=== PATIENT | female | born 1945 | race Caucasian/White ===

== ENCOUNTER 2020-08-10 12:01 | Outpatient (REF) | payer OTHER, SELFPAY | END 2020-08-10 12:02 | disposition home or self-care (01) | LOC: HO.LAB 12:01 | PROVIDERS: Visit Provider Internal Medicine | DX: Z20.822 Contact with and (suspected) exposure to COVID-19 (principal) | CPT/HCPCS: 36415; C9803; U0003; U0005 ==

== ENCOUNTER → 2020-10-27 08:19 | Outpatient (REF) | payer MEDICARE, SELFPAY ==
--- NOTE | ~2020-10-27 | NM_ITS ---
Lexiscan Myocardial perfusion study Indication: Chest pain, assess for coronary disease and ischemia Technique: The patient was brought in for a Lexiscan perfusion study on 10/27/2020 and was injected 0.4 mg of Lexiscan intravenously. Within a minute of this injection 25 mCi of sestamibi was given intravenously. Images were obtained using the SPECT gamma camera interlaced with the gating device. Images were obtained in supine position. Resting perfusion study was performed on 10/31/2020. Patient was administered 25 mCi of sestamibi intravenously at rest. Images were then obtained in supine position. Total DLP 87mGy-cm. Images were processed with the software and compared side to side in short axis, horizontal long axis and vertical long axis views. Findings: Raw acquisition was reviewed. The stress perfusion study showed no significant perfusion abnormality. Both uncorrected as well as CT attenuation corrected images were reviewed. The gated study shows normal LV systolic function with calculated LVEF of 70%. LV cavity is normal in size. The gated study shows normal wall thickening and contraction of segments. Resting study shows mildly diminished tracer uptake in the inferolateral wall. There is adjacent GI/hepatic tracer uptake that might be the reason behind this. Attenuation corrected images are of poor quality. Gating at rest reveals normal wall motion with ejection fraction at 50%. The findings are consistent with no definitive perfusion defects. NM/NM kristian perf SPECT rest & str Impression: 1. Myocardial perfusion imaging study shows no definitive evidence of any ischemia or infarction. 2. Gated LVEF is 70% during stress and 50% during rest. 3. Transient ischemic dilatation not present. EKG component of the test reported separately.
--- NOTE | 2020-10-27 08:30 | CA_ITS ---
Transthoracic Echocardiogram Patient (Last, First, Middle): Adele Box M Gender: Female Date of : 1945 Age: 75 Procedure Date: 10/27/2020 Procedure Type: Transthoracic Echocardiogram Location: OP Height: 142.24 cm Weight: 58.06 kg BSA: 1.47 m2 Heart Rate: bpm BP: 140 / 85 mmHg [employer] Cutter: BRIAN Perea MD: Pool Madrid MD Speech Clinician: Ron Mcclellan MD Symptoms: R53.83 OTHER FATIGUE Study Quality: Fair ECG Rhythm: Sinus Conclusions: - 1. Normal LV systolic function with grade 1 diastolic dysfunction 2. Mildly dilated left atrium 3. Normal cardiac valvular Doppler 4. Normal RV systolic pressure 5. No pericardial effusion Findings Left Ventricle Normal left ventricular size, thickness, and systolic function. The visually estimated ejection fraction is between 60-65%. Spectral Doppler is indicative of an impaired relaxation filling pattern. E/E prime ratio is <8, consistent with normal filling pressures. Evidence suggests grade I (mild) diastolic dysfunction. Right Ventricle Normal right ventricular cavity size and systolic function. Atria The left atrium is mildly dilated. There is no evidence of interatrial shunt. The right atrium is likely dilated. Aortic Valve There is mild thickening of the aortic valve. There is no aortic valve stenosis. There is no aortic valve regurgitation. Mitral Valve There is mild anterior and posterior mitral leaflet thickening. There is mild mitral annular calcification. There is trace mitral valve regurgitation. There is no mitral valve stenosis. Pulmonic Valve The pulmonic valve was not well visualized. Tricuspid Valve Likely normal tricuspid valve structure and function. There is trace tricuspid valve regurgitation. The right ventricular systolic pressure is normal. The right ventricular systolic pressure is 29 mmHg. Normal right atrial pressure. There is no evidence of pulmonary hypertension. Great Vessels All visible segments of the aorta are normal in size. The pulmonary artery was not well visualized. Venous The inferior vena cava is normal in size and collapses greater than 50% with inspiration. Pericardium/Pleural There is no evidence of pericardial effusion. Prior Study Comparison No prior study available for comparison. Measurements 2D Linear Measurements IVSd: 0.99 0.6-0.9/0.6-1.0 cm LVIDd: 3.01 3.9-5.3/4.2-5.9 cm LVIDd Index: 2.05 2.4-3.2/2.2-3.1 cm/m2 LVIDs: 2.18 2.0-3.6 cm LVPWd: 0.95 0.7-1.1 cm Ao Root: 2.80 2.1-3.5 cm LA Diam: 3.50 2.7-3.8/3.0-4.0 cm LAIDs Index: 2.38 1.5-2.3 cm/m2 LV Mass: 98.01 67-162/88-224 g LV Mass Index: 66.67 43-95/49-115 g/m2 LVOT Diam: 1.90 3.0+(-)1.3 cm 2D Systolic Function EF 4C: 59.40 >55% EF 2C: 66.70 >55% EF BiP: 64.60 >55% Mitral Valve MV Pk E: 0.98 MV PK A: 1.40 MV Decel Time: 151.00 E/A: 0.70 E'Lateral: 8.32 E'Medial: 6.67 E/E' Med: 14.70 E/E' Lat: 11.80 PHT: 44.00 MVA PHT: 5.00 Decel [place]: 6.48 Aortic Valve AoV Pk Matthieu: 1.39 AoV Mn Matthieu: 1.01 AoV VTI: 0.36 AoV Pk Grad: 8.00 Aov Mn Grad: 5.00 MICHELLE Cont.VTI: 2.33 LVOT LVOT Pk Matthieu: 1.05 LVOT Mn Matthieu: 0.77 LVOT VTI: 0.29 LVOT Pk Grad: 4.00 LVOT Mn Grad: 3.00 LVOT Diam: 1.90 LVOT Area: 2.84 Diastolic Function MV Pk E: 0.98 MV Pk A: 1.40 E/A: 0.70 E'Medial: 6.67 E/E' Med: 14.70 E' Laterial: 8.32 E/E' Lat: 11.80 Tricuspid Valve TR Pk Matthieu: 2.55 TR Pk Grad: 26.00 RA Press: 3.00 RVSP: 29.00 Great Vessels Aorta Ao Root-2D: 2.80 2.0-3.7 cm Ao Asc: 2.80 2.1-3.4 cm Ao Arch: 2.50 Updated in Other Vendor System with Status of Final Ron Mcclellan MD electronically signed on 10/29/2020 12:02:38 PM with status of Final
--- NOTE | 2020-10-27 09:30 | CA_ITS ---
Acquisition Time: 2020-10-27 09:27:46 Total Exercise Time: 00:02:00 Test Indications: Fatigue Medications: AMLODIPINE ADVAIR PRO AIR ATORVASTATIN OMEPRAZOLE CARAFATE Protocol: LEXISCAN Max HR: 125 BPM 86% of Pred: 144 BPM Max BP: 130/080 mmHG Max Work Load: 1.0 METS Pharmacological stress test using Lexiscan while sitting and kicking her feet. Pt reports chest thightness after Lexiscan that resolves in recovery. EKG with no arrhythmia, non-diagnostic for ischemia, Nuclear images to follow. Normotensive response to test. Test reviewed with Dr. Parra Referred By: Pool Montemayor Overread By: Katherine Gutierrez NP
== END ==
LOC: HO.CARD 08:19
PROVIDERS: PCP Internal Medicine; Visit Provider Internal Medicine
DX: R07.9 Chest pain, unspecified (principal); R53.83 Other fatigue
CPT/HCPCS: 78452; 93016; 93017; 93018; 93306; A9500; J0280; J2785

== ENCOUNTER 2021-03-09 12:52 | Outpatient (REF) | payer MEDICARE, SELFPAY | END 2021-03-09 12:53 | disposition home or self-care (01) | LOC: HO.LAB 12:52 | PROVIDERS: PCP Internal Medicine; Visit Provider Internal Medicine | DX: Z20.822 Contact with and (suspected) exposure to COVID-19 (principal) | CPT/HCPCS: C9803; U0003; U0005 ==

== ENCOUNTER 2021-06-25 10:23 | Outpatient (REF) | payer MEDICARE, SELFPAY ==
[2021-06-25 12:03] LABS: COVID-19 Test Negative (Negative); IDNOW Serial# 16C4AD1C
== END 2021-06-25 10:24 | disposition home or self-care (01) ==
LOC: HO.LAB 10:23
PROVIDERS: Visit Provider Internal Medicine
DX: Z20.822 Contact with and (suspected) exposure to COVID-19 (principal)
CPT/HCPCS: 36415; 87635; C9803

== ENCOUNTER 2021-07-20 08:27 | Outpatient (REF) | payer MEDICARE, SELFPAY ==
--- NOTE | ~2021-07-20 | MM_ITS ---
EXAMINATION: BONE DENSITOMETRY CLINICAL INDICATION: Menopause. COMPARISON: This is the patient's baseline examination. TECHNIQUE: Using a [employer] Scheduling DXA System (software version: 13.1) manufactured by [employer], dual-energy x-ray absorptiometry was performed of the lumbar spine and left hip. The images are of good technical quality. Summary results are attached. FINDINGS: AP SPINE L2-L4 (excluding L1): The data of L1-L4 has been changed to exclude the L1 vertebral body, because degenerative sclerosis at this level may cause overestimation of lumbar spine density. BMD 0.778 g/cm2, Z-score -1.5, T-score -3.5, osteoporosis. LEFT FEMUR, NECK: BMD 0.724 g/cm2, Z-score -0.1, T-score -2.3, osteopenia. LEFT FEMUR, TOTAL: BMD 0.801 g/cm2, Z-score 0.4, T-score -1.6, osteopenia. IDENTIFIED RISK FACTORS: Menopause, anticonvulsant, height loss, low calcium intake. HISTORY OF FRACTURE: None listed. MEDICATIONS: Vitamin D. MM/XR DEXA axial skeleton IMPRESSION: 1. DIAGNOSIS: Osteoporosis based on the lowest T-score value of -3.5 in the lumbar spine applying World Health Organization criteria. 2. 10-YEAR FRACTURE RISK PREDICTION, FRAX: Major osteoporotic fracture (clinical spine, forearm, hip or shoulder) 9.4%. Hip fracture 2.8%. 3. Treatment Recommendations: NOF guidelines recommend consideration for treatment in postmenopausal women and men age 50 and older presenting with the following: -A hip or vertebral (clinical or morphometric) fracture. -T-score less than or equal to -2.5 at the femoral neck or spine after appropriate evaluation to exclude secondary causes. -Low bone mass at the hip or spine and a 10-year fracture probability by FRAX of greater than or equal to 3% for hip fracture or greater than or equal to 20% for major osteoporotic fracture based on the [place] adapted WHO algorithm. 4. Other Recommendations: All treatment decisions require clinical judgment and consideration of individual patient factors, including patient preferences, comorbidities, previous drug use, risk factors not captured in the FRAX model (e.g. frailty, falls, vitamin D deficiency, increased bone turnover, interval significant decline in bone density) and possible under or overestimation of fracture risk by FRAX. Additional medical evaluation for secondary cause of low bone mineral density may be appropriate. FUTURE SCAN RECOMMENDATION: People with diagnosed cases of osteoporosis or at high risk for fracture should have regular bone mineral density tests. For patients eligible for Medicare, routine testing is allowed once every 2 years. The testing frequency can be increased to one year for patients who have rapidly progressing disease, those who are receiving or discontinuing medical therapy to restore bone mass, or have additional risk factors.
== END 2021-07-20 08:28 | disposition home or self-care (01) ==
LOC: HO.MAMMO 08:27
PROVIDERS: PCP Internal Medicine; Visit Provider Internal Medicine
DX: Z13.820 Encounter for screening for osteoporosis (principal); E83.51 Hypocalcemia; Z78.0 Asymptomatic menopausal state; Z79.01 Long term (current) use of anticoagulants; Z79.899 Other long term (current) drug therapy
CPT/HCPCS: 77080

== ENCOUNTER 2021-08-30 13:07 | Outpatient (REF) | payer MEDICARE, SELFPAY ==
--- NOTE | ~2021-08-30 | US_ITS ---
EXAMINATION: US PELVIS CLINICAL INFORMATION: Left ovarian cyst COMPARISON: None TECHNIQUE: Ultrasound of the pelvis is performed using both transabdominal and transvaginal transducers along with Doppler. Transvaginal imaging is performed due to inadequate visualization transabdominally. FINDINGS: Uterus: The uterus is anteverted, anteflexed and measures 6.6 x 1.9 x 4.6 cm. The double wall endometrial thickness is 0.2 cm. The uterus is smooth in contour and has heterogeneous echogenicity with a calcified uterine texture. No visible fibroid. There are small nabothian cysts seen in the cervix Adnexa: Both ovaries are visualized. There is normal color flow to the adnexa. There is no ovarian torsion. There is no pelvic ascites or fluid collection. Right ovary measures 1.8 x 0.9 x 1.0 cm and volume 0.85 mL. There is slightly elongated anechoic fluid collection the right ovary or adjacent to the ovary question cyst versus hydrosalpinx anechoic cyst. It measures 0.92 x 0.80 x 1.7 cm. Left ovary measures 1.4 x 1.0 1.2 cm and volume 0.88 mL there is anechoic cyst measuring 0.89 x 0.74 x 0.71 cm likely paraovarian cyst. There is no free fluid. US/US pelvic and transvaginal IMPRESSION: Small nabothian cysts in the cervix. Likely small right hydrosalpinx versus ovarian cyst. Small left paraovarian cyst.
== END 2021-08-30 13:08 | disposition home or self-care (01) ==
LOC: HO.US 13:07
PROVIDERS: PCP Internal Medicine; Visit Provider Internal Medicine
DX: N83.202 Unspecified ovarian cyst, left side (principal)
CPT/HCPCS: 76830; 76856

== ENCOUNTER → 2022-02-14 13:46 | Outpatient (BNVA) | payer MEDICARE, SELFPAY | PROVIDERS: PCP Internal Medicine; Visit Provider Internal Medicine Endocrinology, Diabetes & Metabolism | DX: M81.0 Age-related osteoporosis without current pathological fracture (principal) | CPT/HCPCS: 99202 ==

== ENCOUNTER 2022-06-26 09:56 | Outpatient (REF) | payer OTHER, SELFPAY ==
[2022-06-26 11:47] LABS: Albumin Level 4.4 g/dL (3.5-5.0); Anion Gap 12 (12-20); Blood Urea Nitrogen 16 mg/dL (9-16); Calcium 9.6 mg/dL (8.4-10.2); Carbon Dioxide 30 mmol/L (22-29); Chloride 106 mmol/L (96-108); Estimated Glomerular Filt Rate > 60; Free T4 (Free Thyroxine) 0.93 ng/dL (0.71-1.85); Glucose Random 96 mg/dL (60-115); Phosphorus 4.4 mg/dL (2.7-4.5); Potassium 4.4 mmol/L (3.3-5.1); Sodium 144 mmol/L (135-145); Thyroid Stimulating Hormone 1.39 uIU/mL (0.32-4.0); Vitamin D 25-OH Total 24.8 ng/mL (>30)
[2022-07-02 23:34] LABS: Alkaline Phosphatase Bone 11.5 mcg/L (see note)
[2022-07-03 12:02] LABS: Prot Elec - Albumin 4.3 g/dL (3.8-4.8); Prot Elec - Alpha1 0.3 g/dL (0.2-0.3); Prot Elec - Alpha2 0.8 g/dL (0.5-0.9); Prot Elec - Beta 1 0.5 g/dL (0.4-0.6); Prot Elec - Beta 2 0.5 g/dL (0.2-0.5); Prot Elec - Gamma 1.1 g/dL (0.8-1.7); Prot Elec - Total Protein 7.5 g/dL (6.1-8.1)
== END 2022-06-26 09:57 | disposition home or self-care (01) ==
LOC: HO.LAB 09:56
PROVIDERS: PCP Internal Medicine; Visit Provider Internal Medicine Endocrinology, Diabetes & Metabolism
DX: M81.0 Age-related osteoporosis without current pathological fracture (principal)
CPT/HCPCS: 80048; 82040; 82306; 84075; 84100; 84165; 84439; 84443

== ENCOUNTER 2022-06-28 14:17 | Outpatient (REF) | payer OTHER, SELFPAY ==
[2022-06-28 15:50] LABS: Total Volume 24 Hour Urine 2625 mL
[2022-06-28 16:01] LABS: Creatinine, 24Hr Urine 1.2 G/Day (1.0-2.0); Creatinine, mg/dL 46.67
[2022-06-29 17:23] LABS: Calcium, 24 Hr Urine 81 mg/24 h; Calcium/Creatinine Ratio 69 mg/g creat (30-275); Creatinine 24Hr Urine 1.18 g/24 h (0.50-2.15)
== END 2022-06-28 14:18 | disposition home or self-care (01) ==
LOC: HO.LNP 14:17
PROVIDERS: Visit Provider Internal Medicine Endocrinology, Diabetes & Metabolism
DX: M81.0 Age-related osteoporosis without current pathological fracture (principal)
CPT/HCPCS: 82340; 82570; 86335

== ENCOUNTER → 2022-07-02 13:26 | Outpatient (BNVA) | payer OTHER, SELFPAY | PROVIDERS: PCP Internal Medicine; Visit Provider Internal Medicine Endocrinology, Diabetes & Metabolism | DX: M81.0 Age-related osteoporosis without current pathological fracture (principal); E27.49 Other adrenocortical insufficiency; Z79.01 Long term (current) use of anticoagulants; Z79.899 Other long term (current) drug therapy | CPT/HCPCS: 99212 ==

== ENCOUNTER 2023-06-16 12:45 | Outpatient (REF) | payer OTHER, SELFPAY ==
[2023-06-16 14:11] LABS: MANUAL DIFF FLAG NO
[2023-06-16 14:18] LABS: Basophils Absolute Auto 0.1 X10*3/uL (0.0-0.2); Basophils Percent Auto 0.8 % (0-2); Eosinophils Absolute Auto 0.2 X10*3/uL (0.0-0.4); Eosinophils Percent Auto 2.4 % (0-4); Hematocrit 39.2 % (37.0-47.0); Hemoglobin 12.3 g/dl (12.0-16.0); Imm Gran Abs Auto 0.03 X10*3/uL (0.00-0.03); Imm Gran Pct Auto 0.3 % (0.0-0.4); Lymphocytes Absolute Auto 3.1 X10*3/uL (1.2-4.9); Lymphocytes Percent Auto 31.3 % (20-40); Mean Corpuscular HGB Conc 31.4 g/dl (31.0-35.0); Mean Corpuscular Volume 92.5 fL (80.0-98.0); Mean Platelet Volume 11.1 fL (9.4-12.3); Monocytes Absolute Auto 0.6 X10*3/uL (0.1-1.2); Monocytes Percent Auto 5.6 % (2-11); Neutrophils Absolute Auto 5.8 x10*3/uL (2.0-8.3); Neutrophils Percent Auto 59.6 % (45-73); Platelet Count 256 X10*3/uL (160-400); Red Blood Count 4.24 X10*6/uL (4.20-5.50); Red Cell Distribution Width 13.4 % (11.0-16.0); White Blood Count 9.7 X10*3/uL (4.8-10.8)
[2023-06-16 15:23] LABS: Alanine Aminotransferase 18 U/L (0-31); Albumin Level 4.3 g/dL (3.5-5.0); Alkaline Phosphatase 70 U/L (39-117); Anion Gap 14 (12-20); Aspartate Amino Transferase 19 U/L (5-31); Bilirubin Total 0.5 mg/dL (0.0-1.0); Blood Urea Nitrogen 14 mg/dL (9-16); Calcium 9.3 mg/dL (8.4-10.2); Carbon Dioxide 25 mmol/L (22-29); Chloride 106 mmol/L (96-108); Cholesterol 147 mg/dL (<200); Estimated Glomerular Filt Rate > 60; Glucose Random 96 mg/dL (60-115); HDL Cholesterol 59 mg/dL (>40); Iron 77 mcg/dL (30-160); LDL Cholesterol Calculated 66 mg/dL (<100); Percent Iron Saturation 27 % (15-50); Potassium 3.3 mmol/L (3.3-5.1); Sodium 142 mmol/L (135-145); Total Iron Binding Capacity 288 mcg/dL (228-428); Total Protein 7.7 g/dL (6.5-8.0); Triglycerides 112 mg/dL (<150); Unsaturated Iron Binding 211 ug/dL
[2023-06-16 15:25] LABS: TSH reflex Free T4 1.07 uIU/mL (0.32-4.0)
== END 2023-06-16 12:46 | disposition home or self-care (01) ==
LOC: HO.CHCLDS 12:45
PROVIDERS: Visit Provider Internal Medicine
DX: R53.83 Other fatigue (principal)
CPT/HCPCS: 36415; 80053; 80061; 83540; 84443; 85025

== ENCOUNTER 2023-11-24 10:35 | Outpatient (AMB) | payer OTHER, SELFPAY ==
--- NOTE | 2023-11-24 10:37 | MHC.OFFVIS ---
Vital Signs 11/24/23 10:43 Height 4 ft 9 in Weight 127 lb BMI 27.5 BP 135/66 Blood Pressure Location Lt brachial Position Sitting Pulse 87 Pulse Source Pulse Oximeter Pulse Oximetry (%) 96 Oxygen Delivery Method Room Air Intake Visit Reasons: chronic bilateral low back pain w/R sided sciatica Intake Note: Pain today 12/14 Document Management Technician Required: Yes Document Management Technician Language: Cpc Name: Hema - daughter in law Accompanied by: Family/Other Allergies Penicillins Allergy (Unknown, Verified 11/24/23 10:43) hives, rash Medication List - Last Reconciled 11/24/23 by Annmarie Jin, HIGH REACH OPERATOR albuterol sulfate 90 mcg/actuation 0 mcg PO Q4-6H PRN amlodipine 10 mg PO DAILY atorvastatin 10 mg PO DAILY calcium carbonate-vitamin D3 600 mg-10 mcg (400 unit) 1 tab PO BID celecoxib (Celebrex) 100 mg PO DAILY PRN cholecalciferol (vitamin D3) 25 mcg PO DAILY fluticasone propion-salmeterol 250-50 mcg/dose (Wixela Inhub) 1 inh inhalation BID losartan 25 mg PO DAILY omeprazole 20 mg PO BID sennosides (senna) 17.2 mg PO DAILY HPI HPI chronic bilateral low back pain w/R sided sciatica: Details: Patient is a pleasant 78-year-old [place]-speaking female with history of osteoporosis, chronic low back pain, shoulder and hip pain, arthritis, presents today for initial evaluation of left hip pain radiation into her left lower leg and right knee pain. She was referred to us for chronic bilateral low back pain with right-sided sciatica. Patient reports low back pain has been minimal. She denies any past or recent trauma, injury, or falls. Patient has kyphosis in upper and mid back and scoliosis in her lower spine with painful facet loading bilaterally as well as positive localized tenderness to bilateral sacroiliac joint areas, worse on the left and positive provocative testing. Patient also reports numbness and tingling in her left milton and lateral lower leg. She also has localized tenderness to left greater trochanteric bursa and mild groin pain with external hip rotations, weight-bearing, standing or walking. Patient denies previous spine or joint replacement surgeries. She has regularly attended [facility] in [place], followed by Dr. Garcia and received shoulder and the left hip bursa injections with temporary but good pain relief. Patient has pending repeat bone density test on 12/12/2023. She reports past lumbar spine MRI in 2021 and Neurosurgical evaluation at [facility]. These reports are not available for review today. Pain affects her daily activities and functioning, mobility, sleep, social interactions and quality of life. Denies any fever, chills, weight loss, abdominal pain, weakness, foot drop, bladder or bowel dysfunction or saddle anesthesia. Location: Lower back radiates down left leg and right knee pain Duration: Chronic pain for 2 years Characteristics of symptom or complaint: Schooting, aching, numbness, tingling, throbbing, stabbing Aggravating or associated factors: Standing, walking, climbing stairs, weight bearing, cold weather Relieving factors: Tylenol, meloxicam, celebrex, ice/heat, rest Treatment: Left GTB injection 09/2023 [facility] Medical History Depression with anxiety Varicose veins of bilateral lower extremities with pain HTN (hypertension) GERD (gastroesophageal reflux disease) Osteoporosis Surgical History History of surgery History of tubal ligation Family History Mother Asthma Father High blood pressure Alzheimer's dementia Brother Diabetes Brother Cancer of kidney Brother Colon cancer Social History Unable to assess alcohol history related to: Unable to respond Patient Tobacco Use Status: Never used Tobacco Review of Systems Const All systems reviewed & are unremarkable except as noted in HPI and below Physical Exam Vital Signs: Last Vital Signs Pulse 87 11/24/23 10:43 BP 135/66 11/24/23 10:43 Pulse Ox 96 11/24/23 10:43 Oxygen Delivery Method Room Air 11/24/23 10:43 BMI result Body Mass Index 27.5 General: Appears afebrile. Alert and oriented. Mood and affect appropriate. Follows and participates in conversation appropriately. Respiratory effort is unlabored. No cough. Able to transition from sit to stand unassisted. Ambulates with bilaterally normal heel strike and toe off, reports imbalance on the left. General: Yes no CVA tenderness Back/Spine/Pelvis Other: Limited lumbar ROM due to pain. Antalgic gait with mild limping. No assistive device used. Can flex forward to 60-65 degrees and extend to 5-10 degrees before experiencing lumbar pain. Demonstrates 5/5 right 4/5 strength of quadriceps bilaterally as well as flexion/dorsiflexion of bilateral feet against resistance. 2+ pedal pulses bilaterally. Straight leg rise with dorsiflexion negative bilaterally. +1 patellar and achilles reflexes bilaterally. Facet loading test positive bilaterally. Yordan sign, Khari?s, Pelvic compression and Stinchfield tests are positive bilaterally, left worse than right. Mild groin pain with left hip external rotations. FABERE test reproduces moderate left hip and mild groin pain. Moderate TTP to left GTB. Notable leg discrepancy, right leg shorter than the left. Back: no CVA tenderness Cervical Spine: loss of normal cervical lordosis, cervical muscular tenderness and No Cervical spine tenderness Thoracic/Lumbar Spine: thoracic and lumbar spine normal to inspection, No Thoracic/lumbar spine scar(s), Lasegue's sign negative, straight leg raise negative bilaterally, kyphosis, pain with thoraco-lumbar ROM, paraspinal muscle tenderness, thoraco-lumbar ROM limited, Thoracic/lumbar scoliosis, No thoracic spinal tenderness and lumbar spinal tenderness (L3-S1) Pelvis: buttock tenderness on the left and no sciatic notch tenderness Sacroiliac joints: bilaterally (Left>Right) tender to palpation Extrem General: Yes capillary refill normal, Yes no calf tenderness, No clubbing, No cyanosis, Yes pedal edema (+1 edema) and Yes other (Multiple bilateral varicosities with inflammation and pain) Right lower extremity: knee (limited ROM due to pain) Details: normal to inspection, tenderness Location: of the medial joint line, of the lateral joint line and of the pre-patellar area and crepitus; no swelling, no ecchymosis and no unusual warmth Results Reviewed Results Reviewed: MM/XR DEXA axial skeleton 07/20/21 IMPRESSION: 1. DIAGNOSIS: Osteoporosis based on the lowest T-score value of -3.5 in the lumbar spine applying World Health Organization criteria. Assessment & Plan Assessment & Plan (1) Chronic left hip pain: Code(s): M25.552 - Pain in left hip; G89.29 - Other chronic pain Category: Medical (2) Lumbosacral spondylosis: Code(s): M47.817 - Spondylosis without myelopathy or radiculopathy, lumbosacral region Category: Medical (3) Varicose veins of bilateral lower extremities with pain: Code(s): I83.813 - Varicose veins of bilateral lower extremities with pain Category: Medical (4) Right knee pain: Code(s): M25.561 - Pain in right knee Category: Medical (5) Osteoporosis: Code(s): M81.0 - Age-related osteoporosis without current pathological fracture Category: Medical Plan Lumbar spine and hip imaging to assess degree of degenerative changes, any subluxation, listhesis, compression fractures or pars defects. Briefly discussed interventional treatments for hip and low back pain, including diagnostic injections for potential Sprint PNS trial versus RFA. Due to osteoporosis, patient is not candidate for steroidal injections. She has upcoming repeat bone density on 12/12/2023. Medical release request sent to [facility] for most recent lumbar spine MRI report. Script provided for lidocaine patches for lower back and knee pain. Continue Tylenol, NSAIDs prn, ice/heat, activity modifications. Vascular referral to further assess multiple bilateral varicosities intermittent inflammation and pain. All questions and concerns have been answered and patient agreed with the plan. Follow-up for imaging review and sooner as needed. Orders: Orders XR lumbar spine 4V min Today M47.817 - Spondylosis without myelopathy or radiculopathy, lumbosacral region XR hip LT w PEL1V Today G89.29 - Other chronic pain, M25.552 - Pain in left hip Referrals Vascular Surgery Referral I83.813 - Varicose veins of bilateral lower extremities with pain Medications: New lidocaine 5% leave on most painful area for up to 12 hrs topical 30 ea 1RF M47.817 - Spondylosis without myelopathy or radiculopathy, lumbosacral region Coding Level of Care Code New Pt Level 4 (30969) Diagnoses Chronic left hip pain M25.552; G89.29 Lumbosacral spondylosis M47.817 Varicose veins of bilateral lower extremities with pain I83.813 Right knee pain M25.561 Osteoporosis M81.0
[2023-11-24 10:43] VITALS: BP 135/66; PULSE 87; O2SAT 96; BMI 27.5
== END 2023-11-24 11:38 | disposition home or self-care (01) ==
PROVIDERS: PCP Internal Medicine; Visit Provider Nurse Practitioner Family
DX: M25.552 Pain in left hip (principal); G89.29 Other chronic pain; M47.817 Spondylosis without myelopathy or radiculopathy, lumbosacral region; I83.813 Varicose veins of bilateral lower extremities with pain; M25.561 Pain in right knee; M81.0 Age-related osteoporosis without current pathological fracture
CPT/HCPCS: 99204

== ENCOUNTER 2023-11-24 10:35 | Outpatient (REF) | payer OTHER, SELFPAY ==
--- NOTE | ~2023-11-24 | XR_ITS ---
EXAMINATION: XR HIP, LEFT Pelvis: CLINICAL INFORMATION: Pain in left hip COMPARISON: None available. TECHNIQUE: Two views of the left hip. Single view the pelvis FINDINGS: Pelvis and left hip: Left hip: Os acetabuli. Joint space normal. Pelvis: Right hip unremarkable. Left hip as above. Postsurgical changes overlie the pelvis. Symphysis pubis and sacroiliac joints unremarkable. Spondylosis of the partially visualized lumbar sacral spine. XR/XR hip LT w PEL1V IMPRESSION: Left hip: No definite arthrosis. Os acetabuli. No acute abnormality in the pelvis.
--- NOTE | ~2023-11-24 | XR_ITS ---
EXAMINATION: XR LUMBOSACRAL SPINE WITH OBLIQUES CLINICAL INFORMATION: Spondylosis without myelopathy or radiculopathy lumbosacral spine. Patient states pain in left hip and lower back. COMPARISON: None available. TECHNIQUE: 5 views of lumbar spine. FINDINGS: There is a transitional lumbosacral vertebral body referred to as L5 for the purposes of this dictation. Dedicated imaging of the entire spine recommended prior to any intervention/procedure. The bones are diffusely demineralized. S-shaped thoracolumbar scoliosis. Multiple surgical clips in the pelvis. Moderate degenerative changes in the bilateral sacroiliac joints. Facet arthritis in the lower lumbar spine. Moderate multilevel lumbar spondylosis. Severe S-shaped thoracolumbar scoliosis. Grade 1 anterolisthesis of L4 on L5, and of L5 on S1. XR/XR lumbar spine 4V min IMPRESSION: 1. There is a transitional lumbosacral vertebral body referred to as L5 for the purposes of this dictation. Dedicated imaging of the entire spine recommended prior to any intervention/procedure. 2. Multilevel lumbar spondylosis with severe thoracolumbar scoliosis.
== END 2023-11-24 10:36 | disposition home or self-care (01) ==
LOC: HO.XRAY 10:35
PROVIDERS: PCP Internal Medicine; Visit Provider Nurse Practitioner Family
DX: M47.817 Spondylosis without myelopathy or radiculopathy, lumbosacral region (principal); M25.552 Pain in left hip; I83.813 Varicose veins of bilateral lower extremities with pain; M25.561 Pain in right knee; M81.0 Age-related osteoporosis without current pathological fracture; G89.29 Other chronic pain
CPT/HCPCS: 72110; 73502; 99202

== ENCOUNTER 2023-12-12 10:10 | Outpatient (REF) | payer OTHER, SELFPAY ==
--- NOTE | ~2023-12-12 | MM_ITS ---
EXAMINATION: BONE DENSITOMETRY CLINICAL INDICATION: Age-related osteoporosis without current pathological fracture. COMPARISON: Baseline BD dated 07/20/2021. TECHNIQUE: Using a [employer] DXA System (software version: 13.1) manufactured by [employer], dual-energy x-ray absorptiometry was performed of the lumbar spine and left hip. The images are of good technical quality. Summary results are attached. FINDINGS: LEFT FEMUR, NECK: Current: BMD 0.637 g/cm2, Z-score -0.6, T-score -2.9, osteoporosis. Baseline: BMD 0.724 g/cm2. LEFT FEMUR, TOTAL: Current: BMD 0.748 g/cm2, Z-score 0.1, T-score -2.1, osteopenia, 6.6% decrease from baseline (<5% change is not significant). Baseline: BMD 0.801 g/cm2. AP SPINE L2-L4 (excluding L1): The data of L1-L4 has been changed to exclude the L1 vertebral body, because degenerative sclerosis at this level may cause overestimation of lumbar spine density. Current: BMD 0.802 g/cm2, Z-score -1.3, T-score -3.3, osteoporosis, 3.1% increase from baseline (<5% change is not significant). Baseline: BMD 0.778 g/cm2. IDENTIFIED RISK FACTORS: Menopause, low calcium intake, height loss, osteoporosis. HISTORY OF FRACTURE: None listed. MEDICATIONS: Calcium or multivitamin. Vitamin D. MM/XR DEXA axial skeleton IMPRESSION: 1. DIAGNOSIS: Osteoporosis based on the lowest T-score value of -3.3 in the lumbar spine applying World Health Organization criteria. 2. 10-YEAR FRACTURE RISK PREDICTION, FRAX: According to the guidelines, FRAX calculation should only be performed on patients in the osteopenia bone density category. Therefore, FRAX was not performed on this patient. 3. Treatment Recommendations: NOF guidelines recommend consideration for treatment in postmenopausal women and men age 50 and older presenting with the following: -A hip or vertebral (clinical or morphometric) fracture. -T-score less than or equal to -2.5 at the femoral neck or spine after appropriate evaluation to exclude secondary causes. -Low bone mass at the hip or spine and a 10-year fracture probability by FRAX of greater than or equal to 3% for hip fracture or greater than or equal to 20% for major osteoporotic fracture based on the [place] adapted WHO algorithm. 4. Other Recommendations: All treatment decisions require clinical judgment and consideration of individual patient factors, including patient preferences, comorbidities, previous drug use, risk factors not captured in the FRAX model (e.g. frailty, falls, vitamin D deficiency, increased bone turnover, interval significant decline in bone density) and possible under or overestimation of fracture risk by FRAX. Additional medical evaluation for secondary cause of low bone mineral density may be appropriate. FUTURE SCAN RECOMMENDATION: People with diagnosed cases of osteoporosis or at high risk for fracture should have regular bone mineral density tests. For patients eligible for Medicare, routine testing is allowed once every 2 years. The testing frequency can be increased to one year for patients who have rapidly progressing disease, those who are receiving or discontinuing medical therapy to restore bone mass, or have additional risk factors.
== END 2023-12-12 10:11 | disposition home or self-care (01) ==
LOC: HO.MAMMO 10:10
PROVIDERS: PCP Internal Medicine; Visit Provider Internal Medicine Endocrinology, Diabetes & Metabolism
DX: M81.0 Age-related osteoporosis without current pathological fracture (principal); M47.817 Spondylosis without myelopathy or radiculopathy, lumbosacral region; M48.061 Spinal stenosis, lumbar region without neurogenic claudication; M54.16 Radiculopathy, lumbar region; M53.3 Sacrococcygeal disorders, not elsewhere classified
CPT/HCPCS: 77080; 99212

== ENCOUNTER 2023-12-12 13:34 | Outpatient (AMB) | payer OTHER, SELFPAY ==
--- NOTE | 2023-12-12 13:36 | MHC.OFFVIS ---
Vital Signs 12/12/23 13:39 Height 4 ft 9 in Weight 127 lb BMI 27.5 BP 129/73 Blood Pressure Location Rt brachial Position Sitting Pulse 84 Pulse Source Pulse Oximeter Pulse Oximetry (%) 96 Oxygen Delivery Method Room Air Intake Visit Reasons: follow up xray results/ mri Intake Note: Pain today 02/13 Recreation Aide Required: Yes Recreation Aide Name: Daughter Accompanied by: Daughter Allergies Penicillins Allergy (Unknown, Verified 11/24/23 10:43) hives, rash HPI Comments Details: Patient presents today to discuss recent lumbar spine xray results. Patient continues to endorse significant low back pain with left sided L3-L4 radicular symptoms with restricted and limited walking capacity, weakness and daily functioning. She also has significant bilateral sacroiliac joint pain with provocative testing. Lumbar spine xray showed multilevel lumbar spondylosis with severe thoracolumbar scoliosis and transitional lumbosacral vertebral body referred to as L5. Moderate degenerative changes in the bilateral sacroiliac joints. Recommendations noted for dedicated imaging of the entire spine prior to any intervention/procedure. Patient denies any recent cough, cold, infection, fever, any significant changes in her medical history, medications or recent hospitalizations. PRIOR: Patient is a pleasant 78-year-old Thai-speaking female with history of osteoporosis, chronic low back pain, shoulder and hip pain, arthritis, presents today for initial evaluation of left hip pain radiation into her left lower leg and right knee pain. She was referred to us for chronic bilateral low back pain with right-sided sciatica. Patient reports low back pain has been minimal. She denies any past or recent trauma, injury, or falls. Patient has kyphosis in upper and mid back and scoliosis in her lower spine with painful facet loading bilaterally as well as positive localized tenderness to bilateral sacroiliac joint areas, worse on the left and positive provocative testing. Patient also reports numbness and tingling in her left milton and lateral lower leg. She also has localized tenderness to left greater trochanteric bursa and mild groin pain with external hip rotations, weight-bearing, standing or walking. Patient denies previous spine or joint replacement surgeries. She has regularly attended [facility] in [place], followed by Dr. Garcia and received shoulder and the left hip bursa injections with temporary but good pain relief. Patient has pending repeat bone density test on 12/12/2023. She reports past lumbar spine MRI in 2021 and Neurosurgical evaluation at [facility]. These reports are not available for review today. Pain affects her daily activities and functioning, mobility, sleep, social interactions and quality of life. Denies any fever, chills, weight loss, abdominal pain, weakness, foot drop, bladder or bowel dysfunction or saddle anesthesia. Location: Lower back radiates down left leg and right knee pain Duration: Chronic pain for 2 years Characteristics of symptom or complaint: Schooting, aching, numbness, tingling, throbbing, stabbing Aggravating or associated factors: Standing, walking, climbing stairs, weight bearing, cold weather Relieving factors: Tylenol, meloxicam, celebrex, ice/heat, rest Treatment: Left GTB injection 09/2023 [facility] Medical History Depression with anxiety Varicose veins of bilateral lower extremities with pain HTN (hypertension) GERD (gastroesophageal reflux disease) Osteoporosis Surgical History History of surgery History of tubal ligation Family History Mother Asthma Father High blood pressure Alzheimer's dementia Brother Diabetes Brother Cancer of kidney Brother Colon cancer Social History Unable to assess alcohol history related to: Unable to respond Patient Tobacco Use Status: Never used Tobacco Review of Systems Const All systems reviewed & are unremarkable except as noted in HPI and below Physical Exam Vital Signs: Last Vital Signs Pulse 84 12/12/23 13:39 BP 129/73 12/12/23 13:39 Pulse Ox 96 12/12/23 13:39 Oxygen Delivery Method Room Air 12/12/23 13:39 BMI result Body Mass Index 27.5 General: Appears afebrile. Alert and oriented. Mood and affect appropriate. Follows and participates in conversation appropriately. Respiratory effort is unlabored. No cough. Able to transition from sit to stand with assistance of family. Ambulates with bilaterally normal heel strike and toe off, reports imbalance on the left. General: Yes no CVA tenderness Back/Spine/Pelvis Other: Limited lumbar ROM due to pain. Antalgic gait with mild limping. Lumbar flexion and limited extension with significant scoliosis and kyphosis reproduces moderate to severe pain. Demonstrates 5/5 right 4/5 left strength of quadriceps bilaterally as well as flexion/dorsiflexion of bilateral feet against resistance. 2+ pedal pulses bilaterally. Straight leg rise with dorsiflexion positive on the left in L3-L4 distribution. +1 patellar and achilles reflexes bilaterally. Facet loading test positive bilaterally. Yordan sign, Khari?s, Pelvic compression and Stinchfield tests are positive bilaterally, left worse than right. Mild groin pain with left hip external rotations. FABERE test reproduces moderate left hip and mild groin pain. Moderate TTP to left GTB. Notable leg discrepancy, right leg shorter than the left. Back: no CVA tenderness Cervical Spine: loss of normal cervical lordosis, cervical muscular tenderness, pain with cervical ROM and No Cervical spine tenderness Thoracic/Lumbar Spine: thoracic and lumbar spine normal to inspection, No Thoracic/lumbar spine scar(s), kyphosis, Lasegue's sign positive on the left and localized, pain with thoraco-lumbar ROM, paraspinal muscle tenderness, thoraco-lumbar ROM limited, Thoracic/lumbar scoliosis, No thoracic spinal tenderness, lumbar spinal tenderness (L3-S1) and straight leg raise positive left at 40 degrees Pelvis: buttock tenderness bilaterally and no sciatic notch tenderness Sacroiliac joints: bilaterally (Left>Right) tender to palpation Extrem General: Yes capillary refill normal, Yes no calf tenderness, No clubbing, No cyanosis, Yes pedal edema (+1 edema) and Yes other (Multiple bilateral varicosities with inflammation and pain) Results Reviewed Results Reviewed: MM/XR DEXA axial skeleton 07/20/21 IMPRESSION: 1. DIAGNOSIS: Osteoporosis based on the lowest T-score value of -3.5 in the lumbar spine applying World Health Organization criteria. XR LUMBOSACRAL SPINE WITH OBLIQUES 11/24/23 CLINICAL INFORMATION: Spondylosis without myelopathy or radiculopathy lumbosacral spine. Patient states pain in left hip and lower back. FINDINGS: There is a transitional lumbosacral vertebral body referred to as L5 for the purposes of this dictation. Dedicated imaging of the entire spine recommended prior to any intervention/procedure. The bones are diffusely demineralized. S-shaped thoracolumbar scoliosis. Multiple surgical clips in the pelvis. Moderate degenerative changes in the bilateral sacroiliac joints. Facet arthritis in the lower lumbar spine. Moderate multilevel lumbar spondylosis. Severe S-shaped thoracolumbar scoliosis. Grade 1 anterolisthesis of L4 on L5, and of L5 on S1. IMPRESSION: 1. There is a transitional lumbosacral vertebral body referred to as L5 for the purposes of this dictation. Dedicated imaging of the entire spine recommended prior to any intervention/procedure. 2. Multilevel lumbar spondylosis with severe thoracolumbar scoliosis. Assessment & Plan Assessment & Plan (1) Lumbosacral spondylosis: Code(s): M47.817 - Spondylosis without myelopathy or radiculopathy, lumbosacral region Category: Medical (2) Lumbar spinal stenosis: Code(s): M48.061 - Spinal stenosis, lumbar region without neurogenic claudication Category: Medical (3) Left lumbar radiculopathy: Code(s): M54.16 - Radiculopathy, lumbar region Category: Medical (4) Sacroiliac joint pain: Code(s): M53.3 - Sacrococcygeal disorders, not elsewhere classified Category: Medical (5) Sacroiliitis: Code(s): M46.1 - Sacroiliitis, not elsewhere classified Category: Medical (6) Osteoporosis: Code(s): M81.0 - Age-related osteoporosis without current pathological fracture Category: Medical (7) Mid back pain: Code(s): M54.9 - Dorsalgia, unspecified Category: Medical (8) Thoracic degenerative disc disease: Code(s): M51.34 - Other intervertebral disc degeneration, thoracic region Category: Medical Plan Discussed lumbar spine xray results with patient and her family. We will proceed with dedicated MRI of the thoracic and lumbar spine to assess for neural integrity and compression and follow up on previous lumbar MRI findings. Patient will return to the clinic to discuss results of the MRI findings when it is done and consider interventional therapy vs Neurosurgical evaluation as indicated. Tentatively plan for bilateral diagnostic sacroiliac joint injections with local and fluoroscopy. Expectations, risks and benefits were reviewed. Due to osteoporosis, patient is not candidate for therapeutic injections. Pending results for recent bone scan completed on 12/12/23. Short script provided for oxycodone #20 tabs for moderate-severe pain only. Pill splitter provided per patient's requests as she would like to trial half tab initially. Side effects and precautions were reviewed with patient and family. Narcan script sent too. All questions and concerns have been answered and patient agreed with the plan. Follow up for MRI results and sooner as needed. Orders: Orders MR lumbar spine wo con 12/12/23 M47.817 - Spondylosis without myelopathy or radiculopathy, lumbosacral region, M48.061 - Spinal stenosis, lumbar region without neurogenic claudication, M54.16 - Radiculopathy, lumbar region MR thoracic spine wo con 12/12/23 M51.34 - Other intervertebral disc degeneration, thoracic region, M54.9 - Dorsalgia, unspecified, M81.0 - Age-related osteoporosis without current pathological fracture Medications: New naloxone 4 mg/actuation (Narcan) spray 1 dose into ONE nostril; alternate nostrils w each dose until help arrives 4 mg intranasal Q2M PRN 2 ea 0RF opioid overdose oxycodone Partial Fill upon patient request. 5 mg PO Q8H 7 days PRN 20 tabs 0RF pain M46.1 - Sacroiliitis, not elsewhere classified, M47.817 - Spondylosis without myelopathy or radiculopathy, lumbosacral region, M48.061 - Spinal stenosis, lumbar region without neurogenic claudication, M53.3 - Sacrococcygeal disorders, not elsewhere classified, M54.16 - Radiculopathy, lumbar region miscellaneous medical supply As directed 1 ea 0RF Coding Level of Care Code Est Pt Level 4 (18435) Diagnoses Lumbosacral spondylosis M47.817 Lumbar spinal stenosis M48.061 Left lumbar radiculopathy M54.16 Sacroiliac joint pain M53.3 Sacroiliitis M46.1 Osteoporosis M81.0 Mid back pain M54.9 Thoracic degenerative disc disease M51.34
[2023-12-12 13:39] VITALS: BP 129/73; PULSE 84; O2SAT 96; BMI 27.5
== END 2023-12-12 14:06 | disposition home or self-care (01) ==
PROVIDERS: PCP Internal Medicine; Visit Provider Nurse Practitioner Family
DX: M47.817 Spondylosis without myelopathy or radiculopathy, lumbosacral region (principal); M48.061 Spinal stenosis, lumbar region without neurogenic claudication; M54.16 Radiculopathy, lumbar region; M53.3 Sacrococcygeal disorders, not elsewhere classified; M46.1 Sacroiliitis, not elsewhere classified; M81.0 Age-related osteoporosis without current pathological fracture; M54.9 Dorsalgia, unspecified; M51.34 Other intervertebral disc degeneration, thoracic region
CPT/HCPCS: 99214

== ENCOUNTER 2024-02-05 06:07 | Outpatient (REF) | payer OTHER, SELFPAY ==
--- NOTE | ~2024-02-05 | FL_ITS ---
EXAMINATION: XR FLUOROSCOPY WITH IMAGES CLINICAL INFORMATION: Sacroiliitis not elsewhere classified. COMPARISON: Lumbosacral plain films 11/24/2023. TECHNIQUE: Fluoroscopy provided to: Dr. Saul Fluoroscopy time: 2.2 minutes DAP: 0.0174 mGycm2 Images: 3 FINDINGS: Coned-down images PA and lateral of the sacrum and left SI joint demonstrate 2 needles within the left SI joint. FL/FL guidance in treatment room IMPRESSION: Fluoroscopic guidance. Please refer to the full operative report for details. Electronically signed by: Maikel Benitez MD 04/01/2024 09:45 AM EDT
== END 2024-02-05 06:08 | disposition home or self-care (01) ==
LOC: CF 06:07
PROVIDERS: Visit Provider Internal Medicine
DX: M53.3 Sacrococcygeal disorders, not elsewhere classified (principal); M46.1 Sacroiliitis, not elsewhere classified
CPT/HCPCS: 27096; J2795

== ENCOUNTER 2024-02-05 09:12 | Outpatient (AMB) | payer OTHER, SELFPAY ==
[2024-02-05 09:30] VITALS: BP 124/62; PULSE 90; RESP 18; O2SAT 96
[2024-02-05 09:55] VITALS: BP 130/62; PULSE 84; RESP 17; O2SAT 96
--- NOTE | 2024-02-05 10:02 | A.OFFVIS_ITS ---
Vital Signs 02/05/24 09:30 02/05/24 09:55 BP 124/62 130/62 Blood Pressure Location Rt brachial Rt brachial Position Sitting Sitting Respiration 18 17 Pulse 90 84 Pulse Source Pulse Oximeter Pulse Oximeter Pulse Oximetry (%) 96 96 Oxygen Delivery Method Room Air Room Air Comment Pre-op Post-op Intake Visit Reasons: Abdi Dx SIJ inj Allergies Penicillins Allergy (Unknown, Verified 11/24/23 10:43) hives, rash HPI HPI Abdi Dx SIJ inj: Details: Patient presents for scheduled procedure. Denies any recent cough, cold, infection, fever or other significant changes in medical history since last office visit. [facility] Medical History Depression with anxiety Varicose veins of bilateral lower extremities with pain HTN (hypertension) GERD (gastroesophageal reflux disease) Osteoporosis Surgical History History of surgery History of tubal ligation Family History Mother Asthma Father High blood pressure Alzheimer's dementia Brother Diabetes Brother Cancer of kidney Brother Colon cancer Social History Unable to assess alcohol history related to: Unable to respond Patient Tobacco Use Status: Never used Tobacco Physical Exam Vital Signs: Last Vital Signs Pulse 84 02/05/24 09:55 Resp 17 02/05/24 09:55 BP 130/62 02/05/24 09:55 Pulse Ox 96 02/05/24 09:55 Oxygen Delivery Method Room Air 02/05/24 09:55 Office Procedures Joint Injection/Aspiration Joint Injection/Aspiration Details: Sacroiliac Joint Injection, Bilateral The procedure, its benefits, and its risks were explained and written informed consent was obtained from the patient. Immediately prior to starting the procedure, a time-out safety check was conducted. The patient's identification, procedure name, procedure site, and procedure laterality were confirmed with the patient. ? Patient was placed prone on the fluoroscopy table and the lumbosacral area was prepped using ChloraPrep and draped with sterile drapein standard fashion. The C-arm was rotated in a contralateral oblique fashion until the medial border of the iliac crest no longer foreshadowed the posterior sacroiliac joint line. The skin and subcutaneous tissue was anesthetized using 1 mL of 0.75% plain lidocaine with 1.5-inch 25-gauge needle in the middle region of the joint line.?A 3.5-inch 22-gauge spinal needle with small bend on the tip was slowly advanced towards the joint line, coaxial to the x-ray beam. Once bony content was obtained, the needle was easily slid into the intra-articular space.? Intra- articular needle position was confirmed using lateral fluoroscopy.? A total volume of 2.5mL of solution containing 0.5% of ropivacaine was injected intra- articularly. The stylet was reinserted and needle was removed. The patient tolerated the procedure well. Patient denied any lower extremity weakness or numbness. Patient was observed for 30 min and was discharged after fulfilling the standard discharge criteria. Coding 53322 - Sacroiliac (Bilateral) Procedure code (CPT) selection complete Assessment & Plan Assessment & Plan (1) Sacroiliac joint pain: Code(s): M53.3 - Sacrococcygeal disorders, not elsewhere classified Category: Medical Plan Patient is status post diagnostic bilateral SI joint injections. Patient tolerated procedure well and was discharged home in stable condition with discharge instructions. All questions were answered. We will follow-up via telephone or in clinic to assess response to therapy. A follow-up appointment was made during today's visit. Orders: Orders FL guidance in treatment room Today M46.1 - Sacroiliitis, not elsewhere classified Coding Level of Care Code Procedure Only Diagnoses Sacroiliac joint pain M53.3 CPT Codes Coding - Joint 9: 96068 - Sacroiliac ([id number])
== END 2024-02-05 09:53 | disposition home or self-care (01) ==
LOC: HO.PMCPRC 09:12
PROVIDERS: PCP Internal Medicine; Visit Provider Internal Medicine
DX: M53.3 Sacrococcygeal disorders, not elsewhere classified (principal)
CPT/HCPCS: 27096

== ENCOUNTER 2024-02-12 09:43 | Outpatient (AMB) | payer OTHER, SELFPAY ==
--- NOTE | 2024-02-12 09:47 | A.OFFVIS_ITS ---
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 Saul. Patient reports 70% pain relief for 2 days and ongoing 40-50% pain relief since procedure with partial improvement in daily functioning and sleep. She continous to experience left sided back pain with radiculopathy with walking and bending. Reports weakness in her lower extremities with walking. She is scheduled to undergo thoracic and lumbar MRI on 03/11/24. Previous lumbar spine xray showed multilevel lumbar spondylosis with severe thoracolumbar scoliosis and transitional lumbosacral vertebral body referred to as L5. Moderate degenerative changes in the bilateral sacroiliac joints. Patient denies any recent cough, cold, infection, fever, bladder or bowel dysfunction or saddle anesthesia, any significant changes in her medical history, medications or recent hospitalizations. Past Procedures: 02/05/24: Bilateral diagnostic sacroiliac joint injections-70% pain relief for 2 days PRIOR: Patient is a pleasant 78-year-old Fijian-speaking female with history of osteoporosis, chronic low back pain, shoulder and hip pain, arthritis, presents today for initial evaluation of left hip pain radiation into her left lower leg and right knee pain. She was referred to us for chronic bilateral low back pain with right-sided sciatica. Patient reports low back pain has been minimal. She denies any past or recent trauma, injury, or falls. Patient has kyphosis in upper and mid back and scoliosis in her lower spine with painful facet loading bilaterally as well as positive localized tenderness to bilateral sacroiliac joint areas, worse on the left and positive provocative testing. Patient also reports numbness and tingling in her left milton and lateral lower leg. She also has localized tenderness to left greater trochanteric bursa and mild groin pain with external hip rotations, weight-bearing, standing or walking. Patient denies previous spine or joint replacement surgeries. She has regularly attended [facility] in [place], followed by Dr. Garcia and received shoulder and the left hip bursa injections with temporary but good pain relief. Patient has pending repeat bone density test on 12/12/2023. She reports past lumbar spine MRI in 2021 and Neurosurgical evaluation at [facility]. These reports are not available for review today. Pain affects her daily activities and functioning, mobility, sleep, social interactions and quality of life. Denies any fever, chills, weight loss, abdominal pain, weakness, foot drop, bladder or bowel dysfunction or saddle anesthesia. Location: Lower back radiates down left leg and right knee pain Duration: Chronic pain for 2 years Characteristics of symptom or complaint: Schooting, aching, numbness, tingling, throbbing, stabbing Aggravating or associated factors: Standing, walking, climbing stairs, weight bearing, cold weather Relieving factors: Tylenol, meloxicam, celebrex, ice/heat, rest Treatment: Left GTB injection 09/2023 [facility] Medical History Depression with anxiety Varicose veins of bilateral lower extremities with pain HTN (hypertension) GERD (gastroesophageal reflux disease) Osteoporosis Surgical History History of surgery History of tubal ligation Family History Mother Asthma Father High blood pressure Alzheimer's dementia Brother Diabetes Brother Cancer of kidney Brother Colon cancer Social History Unable to assess alcohol history related to: Unable to respond Patient Tobacco Use Status: Never used Tobacco Review of Systems Const All systems reviewed & are unremarkable except as noted in HPI and below Physical Exam Vital Signs: Last Vital Signs Pulse 77 02/12/24 09:50 BP 136/70 02/12/24 09:50 Pulse Ox 97 02/12/24 09:50 Oxygen Delivery Method Room Air 02/12/24 09:50 BMI result Body Mass Index 27.3 General: Appears afebrile. Alert and oriented. Mood and affect appropriate. Follows and participates in conversation appropriately. Respiratory effort is unlabored. No cough. Able to transition from sit to stand with assistance of family. Ambulates with bilaterally normal heel strike and toe off, reports weakness with pain on the left. General: Yes no CVA tenderness Back/Spine/Pelvis Other: Limited lumbar ROM due to pain. Antalgic gait with mild limping. Lumbar flexion and limited extension with significant scoliosis and kyphosis reproduces moderate to severe pain. Demonstrates 5/5 right 4/5 left strength of quadriceps bilaterally as well as flexion/dorsiflexion of bilateral feet against resistance. 2+ pedal pulses bilaterally. +1 patellar and achilles reflexes bilaterally. Facet loading test positive bilaterally. Yordan sign, Khari?s, Pelvic compression and Stinchfield tests are positive bilaterally. Mild groin pain with left hip external rotations. Back: no CVA tenderness Cervical Spine: loss of normal cervical lordosis, cervical muscular tenderness, pain with cervical ROM and No Cervical spine tenderness Thoracic/Lumbar Spine: thoracic and lumbar spine normal to inspection, No Thoracic/lumbar spine scar(s), kyphosis, Lasegue's sign positive on the left and localized, pain with thoraco-lumbar ROM, paraspinal muscle tenderness, thoraco- lumbar ROM limited, Thoracic/lumbar scoliosis, No thoracic spinal tenderness, lumbar spinal tenderness (L3-S1) and straight leg raise positive left at 40 degrees Pelvis: buttock tenderness bilaterally and no sciatic notch tenderness Sacroiliac joints: bilaterally (Left>Right) tender to palpation Results Reviewed Results Reviewed: MM/XR DEXA axial skeleton 07/20/21 IMPRESSION: 1. DIAGNOSIS: Osteoporosis based on the lowest T-score value of -3.5 in the lumbar spine applying World Health Organization criteria. XR LUMBOSACRAL SPINE WITH OBLIQUES 11/24/23 CLINICAL INFORMATION: Spondylosis without myelopathy or radiculopathy lumbosacral spine. Patient states pain in left hip and lower back. FINDINGS: There is a transitional lumbosacral vertebral body referred to as L5 for the purposes of this dictation. Dedicated imaging of the entire spine recommended prior to any intervention/procedure. The bones are diffusely demineralized. S-shaped thoracolumbar scoliosis. Multiple surgical clips in the pelvis. Moderate degenerative changes in the bilateral sacroiliac joints. Facet arthritis in the lower lumbar spine. Moderate multilevel lumbar spondylosis. Severe S-shaped thoracolumbar scoliosis. Grade 1 anterolisthesis of L4 on L5, and of L5 on S1. IMPRESSION: 1. There is a transitional lumbosacral vertebral body referred to as L5 for the purposes of this dictation. Dedicated imaging of the entire spine recommended prior to any intervention/procedure. 2. Multilevel lumbar spondylosis with severe thoracolumbar scoliosis. Assessment & Plan Assessment & Plan (1) Lumbosacral spondylosis: Code(s): M47.817 - Spondylosis without myelopathy or radiculopathy, lumbosacral region Category: Medical (2) Lumbar spinal stenosis: Code(s): M48.061 - Spinal stenosis, lumbar region without neurogenic claudication Category: Medical (3) Left lumbar radiculopathy: Code(s): M54.16 - Radiculopathy, lumbar region Category: Medical (4) Sacroiliac joint pain: Code(s): M53.3 - Sacrococcygeal disorders, not elsewhere classified Category: Medical (5) Sacroiliitis: Code(s): M46.1 - Sacroiliitis, not elsewhere classified Category: Medical (6) Thoracic degenerative disc disease: Code(s): M51.34 - Other intervertebral disc degeneration, thoracic region Category: Medical Plan Patient s/p bilateral diagnostic sacroiliac joint injections with 70% pain relief for 2 days and ongoing partial pain relief in the projection of her bilateral SIJ areas. She continues to experience left sided radiculopathy and spinal stenosis related pain. Pending MRI on 03/11/24. Proceed with MRI of the thoracic and lumbar spine as scheduled to assess for neural integrity and compression and follow up on previous lumbar MRI findings. Patient will return to the clinic to discuss results of the MRI findings when it is done and consider interventional therapy vs Neurosurgical evaluation as indicated. All questions and concerns have been answered and patient agreed with the plan. Follow up for MRI results and sooner as needed. Coding Level of Care Code Est Pt Level 3 (44611) Diagnoses Lumbosacral spondylosis M47.817 Lumbar spinal stenosis M48.061 Left lumbar radiculopathy M54.16 Sacroiliac joint pain M53.3 Sacroiliitis M46.1 Thoracic degenerative disc disease M51.34
[2024-02-12 09:50] VITALS: BP 136/70; PULSE 77; O2SAT 97; BMI 27.3
== END 2024-02-12 10:11 | disposition home or self-care (01) ==
PROVIDERS: PCP Internal Medicine; Visit Provider Nurse Practitioner Family
DX: M47.817 Spondylosis without myelopathy or radiculopathy, lumbosacral region (principal); M48.061 Spinal stenosis, lumbar region without neurogenic claudication; M54.16 Radiculopathy, lumbar region; M53.3 Sacrococcygeal disorders, not elsewhere classified; M46.1 Sacroiliitis, not elsewhere classified; M51.34 Other intervertebral disc degeneration, thoracic region
CPT/HCPCS: 99213

== ENCOUNTER → 2024-02-12 09:43 | Outpatient (BNVA) | payer OTHER, SELFPAY | PROVIDERS: PCP Internal Medicine; Visit Provider Nurse Practitioner Family | DX: M47.817 Spondylosis without myelopathy or radiculopathy, lumbosacral region (principal); M48.061 Spinal stenosis, lumbar region without neurogenic claudication; M54.16 Radiculopathy, lumbar region; M53.3 Sacrococcygeal disorders, not elsewhere classified; M51.34 Other intervertebral disc degeneration, thoracic region; M46.1 Sacroiliitis, not elsewhere classified | CPT/HCPCS: 99212 ==

== ENCOUNTER 2024-02-17 08:51 | Outpatient (REF) | payer OTHER, SELFPAY ==
[2024-02-17 14:42] LABS: MANUAL DIFF FLAG NO
[2024-02-17 14:49] LABS: Basophils Absolute Auto 0.1 X10*3/uL (0.0-0.2); Eosinophils Absolute Auto 0.3 X10*3/uL (0.0-0.4); Eosinophils Percent Auto 4.8 % (0-4); Hematocrit 39.7 % (37.0-47.0); Hemoglobin 12.7 g/dl (12.0-16.0); Imm Gran Abs Auto 0.01 X10*3/uL (0.00-0.03); Imm Gran Pct Auto 0.2 % (0.0-0.4); Lymphocytes Absolute Auto 2.3 X10*3/uL (1.2-4.9); Lymphocytes Percent Auto 40.2 % (20-40); Mean Corpuscular Hemoglobin 29.4 pg (27.0-33.0); Mean Corpuscular Volume 91.9 fL (80.0-98.0); Mean Platelet Volume 10.9 fL (9.4-12.3); Monocytes Absolute Auto 0.4 X10*3/uL (0.1-1.2); Monocytes Percent Auto 7.2 % (2-11); Neutrophils Absolute Auto 2.7 x10*3/uL (2.0-8.3); Neutrophils Percent Auto 46.6 % (45-73); Platelet Count 263 X10*3/uL (160-400); Red Blood Count 4.32 X10*6/uL (4.20-5.50); White Blood Count 5.8 X10*3/uL (4.8-10.8)
[2024-02-17 15:24] LABS: Alanine Aminotransferase 14 U/L (0-31); Albumin Level 4.3 g/dL (3.5-5.0); Alkaline Phosphatase 62 U/L (39-117); Anion Gap 13 (12-20); Aspartate Amino Transferase 23 U/L (5-31); Bilirubin Total 0.6 mg/dL (0.0-1.0); Blood Urea Nitrogen 11 mg/dL (9-16); Calcium 9.7 mg/dL (8.4-10.2); Carbon Dioxide 25 mmol/L (22-29); Chloride 107 mmol/L (96-108); Cholesterol 151 mg/dL (<200); Estimated Glomerular Filt Rate > 60; Glucose Random 97 mg/dL (60-115); HDL Cholesterol 53 mg/dL (>40); LDL Cholesterol Calculated 75 mg/dL (<100); Potassium 4.3 mmol/L (3.3-5.1); Sodium 141 mmol/L (135-145); Total Protein 7.4 g/dL (6.5-8.0); Triglycerides 118 mg/dL (<150); Vitamin D 25-OH Total 39.5 ng/mL (>30)
== END 2024-02-17 08:52 | disposition home or self-care (01) ==
LOC: HO.CHCLDS 08:51
PROVIDERS: Visit Provider Internal Medicine
DX: I10 Essential (primary) hypertension (principal); M81.0 Age-related osteoporosis without current pathological fracture
CPT/HCPCS: 36415; 80053; 80061; 82306; 85025

== ENCOUNTER 2024-03-11 10:18 | Outpatient (REF) | payer OTHER, SELFPAY ==
--- NOTE | ~2024-03-11 | MR_ITS ---
EXAMINATION: MR LUMBAR SPINE WITHOUT CONTRAST CLINICAL INFORMATION: Age-related osteoporosis. Back pain. Left lower extremity radiculopathy. COMPARISON: X-ray lumbar spine dated 11/24/2023. TECHNIQUE: Multiplanar, multisequence imaging was obtained. FINDINGS: VERTEBRAL BODIES AND PARASPINAL STRUCTURES: There is severe degenerative disc disease and bulky endplate spurring with a mild retrosubluxation at the T12-L1 level. Moderate leftward curvature centered at T12-L1 with a rightward curvature of the lower lumbar spine. There are no compression fractures. The marrow signal is otherwise within normal limits. Mild anterior subluxations are visible at the L3-L4 and L4-L5 levels. Upon counting from the cervical levels inferiorly through the thoracic spine on a localizer acquisition, the L5 vertebra is transitional and partially sacralized. Significant lower lumbar facet arthropathy visible. The paraspinal soft tissues appear normal. Colonic diverticulosis partially visualized. Moderate to large gastroesophageal hiatal hernia partially visualized. The lung bases are grossly clear. CONUS MEDULLARIS AND CAUDA EQUINE: The distal cord, conus tip, and cauda equina nerve roots appear normal. SPINAL LEVELS: T12-L1: Retrosubluxation and severe disc space narrowing with mixed chronic and mild edematous endplate changes. Diffuse disc bulge and hypertrophic facet arthropathy with mild central canal stenosis and severe right foraminal narrowing. L1-L2: Mild disc bulge and hypertrophic facet arthrosis with thinning of the ligamentum flavum and mild central canal stenosis. [id number] foraminal narrowing. L2-L3: Very mild anterolisthesis and moderate facet arthropathy with thickening of the ligamentum flavum and a degenerative disc bulge resulting in mild to moderate central canal stenosis and foraminal narrowing, worse on the left side. L3-L4: Mild anterolisthesis and unroofed disc bulge with advanced facet arthropathy and thickening of the ligamentum flavum resulting in severe central canal stenosis and thecal sac compression. On repeat disc severely compresses the exiting left L3 nerve root with significant left foraminal encroachment. Mild to moderate right foraminal narrowing. L4-L5: Anterolisthesis and unroofing disc with advanced hypertrophic facet arthropathy and thickening of the ligamentum flavum resulting in moderate to severe central canal stenosis and compression of both L5 nerve roots in the lateral recesses. Moderate to severe foraminal narrowing as well. L5-S1: No disc pathology. No central canal stenosis or foraminal narrowing. MR/MR lumbar spine wo con IMPRESSION: 1. Severe multilevel lumbar spondylosis with a moderate leftward curvature centered at the T12-L1 level. No compression fractures. Transitional lumbosacral junction with partial sacralization of L5. If future surgery or a percutaneous procedure is contemplated, recommend correlation with plain film evaluation in order to ensure correct enumeration. 2. Mild retrosubluxation and severe degenerative disc disease at the T12-L1 level with mild central canal stenosis and severe right foraminal narrowing. 3. [id number] central canal stenosis and foraminal narrowing at the L2-L3 level. 4. Mild anterolisthesis and advanced facet arthropathy at the L3-L4 level with severe central canal stenosis and thecal sac compression. Severe left foraminal narrowing with compression of the left L3 nerve root. 5. Anterolisthesis and advanced facet arthropathy at the L4-L5 level with moderate to severe central canal stenosis and compression of both L5 nerve roots in the lateral recesses. 6. Moderate to large gastroesophageal hiatal hernia. Colonic diverticulosis. Electronically signed by: Magdiel Bonilla MD 03/13/2024 09:49 AM EDT
--- NOTE | ~2024-03-11 | MR_ITS ---
EXAMINATION: MR THORACIC SPINE WITHOUT CONTRAST CLINICAL INFORMATION: Age-related osteoporosis without current pathological fracture ; pain COMPARISON: None. TECHNIQUE: Multiplanar multisequence MR imaging of thoracic spine was done without IV contrast using standard sequences. FINDINGS: Lower thoracic levocurvature and moderate lumbar dextrocurvature. Slightly exaggerated mid to lower thoracic kyphosis. 1 anterolisthesis at C4-C5 and C5-C6, slight retrolisthesis at C6-C7, slight anterolisthesis at C7-T1 and T2-T3 and slight retrolisthesis at T12-L1. Vertebral body heights are maintained. There is no suspicious osseous lesion. Multilevel disc desiccation with disc height loss most pronounced and moderate to severe eccentric to the right at T11-T12 and otherwise mild. Degenerative endplate irregularity with mild type I/II Modic endplate change at T12-L1 and trace type I Modic endplate changes at T10-T11. Multilevel small disc protrusion/annular disc bulges without spinal canal stenosis at any level. A right eccentric disc osteophyte complex at T12-L1 contributes to moderate right neural foraminal stenosis. The remainder of the neural foramina are patent. Partially imaged lower cervical spondylosis, incompletely characterized and degraded by motion artifact. There is slight flattening along the dorsal cord at T6 (image 22, series 29 and image 9, series 13 with preserved at dorsal CSF pulsatility, suspicious for underlying dorsal arachnoid with. No intramedullary signal abnormality. No epidural fluid collection, hematoma, or mass. No significant abnormalities of the paraspinal musculature. Large hiatus hernia. The imaged lungs are unremarkable. Fullness of the bilateral renal collecting systems. Significant partially imaged descending colonic diverticulosisThe descending thoracic aorta is of normal contour and caliber. MR/MR thoracic spine wo con IMPRESSION: 1. No acute fracture. 2. Slight flattening along the dorsal cord at T6 with preserved dorsal CSF pulsatility, suspicious for underlying dorsal arachnoid web. No intramedullary signal abnormality. 3. Mild thoracic spondylosis without significant spinal canal stenosis at any level. Moderate right neural foraminal stenosis at T12-L1. 4. Large hiatus hernia. 5. Fullness of the bilateral renal collecting systems. 6. Significant partially imaged descending colonic diverticulosis. Electronically signed by: Moriah Herrera MD 03/29/2024 06:01 PM EDT
== END 2024-03-11 10:19 | disposition home or self-care (01) ==
LOC: HO.MRI 10:18
PROVIDERS: PCP Internal Medicine; Visit Provider Nurse Practitioner Family
DX: M48.061 Spinal stenosis, lumbar region without neurogenic claudication (principal); M54.16 Radiculopathy, lumbar region; M47.817 Spondylosis without myelopathy or radiculopathy, lumbosacral region; M54.9 Dorsalgia, unspecified; M51.34 Other intervertebral disc degeneration, thoracic region; M81.0 Age-related osteoporosis without current pathological fracture
CPT/HCPCS: 72146; 72148

== ENCOUNTER 2024-03-22 10:35 | Outpatient (AMB) | payer OTHER, SELFPAY ==
--- NOTE | 2024-03-22 10:54 | A.SPINEOV_ITS ---
Intake Visit Reasons: back and hip pain Intake Note: Ms. Box is here today c/o back and hip pain. Parachute Supervisor Required: Yes Parachute Supervisor Name: Tablet Allergies Penicillins Allergy (Unknown, Verified 02/12/24 09:51) hives, rash Assessment & Plan Assessment & Plan (1) Left lumbar radiculopathy: Code(s): M54.16 - Radiculopathy, lumbar region Category: Medical Plan Dear Annmarie, Thank you for referring Adele to our office today. She is a pleasant 78-year-old female comes in today with a chief complaint of shooting pain down her left leg. She denies much axial low back pain. The patient reports this has been ongoing for the past 2 years. She is unable to identify specific inciting incident. She states that the pain starts near her left hip shoots down the lateral aspect of her left leg over the lateral left knee down to the lateral left calf. She has been worked up by our colleagues in pain management for this issue, and found that she did have some relief from SI joint injections but much less than she would have anticipated/hoped for. In the reviewed notes from pain management at says she had about 70% relief for a few days. It should be noted that this was only a diagnostic injection as therapeutic injections were deemed inappropriate due to the patient's osteoporosis status. She has tried at-home exercise/stretching, and has attempted [id number]-aag-[id number] medications including pain creams/patches. She found these conservative measures to only provide modest relief. She denies any alleviating/aggravating factors. She feels the shooting pain down her left leg is ?constant? and does not intensify based on positioning. She does endorse a feeling of numbness over the lateral aspect of her left elg as well. PMH: Osteoporosis with the most recent T-score (12/2023) of -3.3. GERD, insomnia, anxiety, hypertension, depression, hyperlipidemia, asthma. Recurrent hiatal hernia with the attempted surgical repair x3. Surgical incision site noted in left inguinal area. She denies any anticoagulation medication, denies any history of sugar intolerance or diabetes, and reports no weight control/diet medications. Social hx: Patient does not smoke, reports no substance use. Medications: Albuterol, amlodipine, atorvastatin, calcium carbonate, Celebrex, vitamin D3, clonazepam, fluticasone, lidocaine patches, losartan, metoprolol, mirtazapine, naloxone, omeprazole, oxycodone, sennosides, venlafaxine, Ambien. Allergies: Penicillins. Physical exam: The patient has 5/5 strength in her bilateral lower extremities. She has 4/5 strength with biceps and deltoid testing bilaterally. The rest of her strength is 5/5. She ambulates relatively well and rises from a seated position with the assistance of a chair. (-) bilateral straight leg raise, (-) Yordan finger test, (-) Abreu's, (-) clonus. Imaging review: MRI of the lumbar spine completed here at [facility] shows dextroscoliosis with the apex at L4 correcting back to midline via levoscoliosis with the apex at L1-2. There is a notable grade 1-2 spondylolisthesis at L4-5. There is severe right-sided and mild-moderate left- sided foraminal stenosis at L1-2. There is significant facet hypertrophy at L3- 4. There is severe central canal and bilateral foraminal stenosis at L4-5. There is moderate central canal and severe bilateral foraminal stenosis at L5-S1 with accompanying severe facet hypertrophy. The last partially formed disc space will be referred to as S1-2 as it is during the radiology report for the sake with this assessment. Impression: Adele is a pleasant 78-year-old female comes in today with a chief complaint of left-sided shooting leg pain. On MRI imaging she has quite an extensive degenerative scoliosis with both the dextroscoliosis and levoscoliosis noted. There is severe bilateral foraminal stenosis at L5-S1, and a notable spondylolisthesis with bilateral severe foraminal stenosis at L4-5. The description of her symptoms most match a right-sided L5 radiculopathy. Typically, if the patient had back pain and the notable listhesis seen wound consider a fusion surgery, however the patient both has fairly severe osteoporosis and no back pain. Therefore I feel the patient would most benefit from either a lumbar decompression or a simple left-sided L5 foraminotomy, as this area does show the worst stenosis seen on imaging and matches the dermatomal distribution that the patient describes. I will discuss this case with Dr. Moncada and update the note accordingly. Thank you for allowing us to care for your patient. The total time spent with this visit with this patient was 45 minutes reviewing history, physical exam, MRI imaging review, and implementation of treatment plan or further diagnostic testing Jamal Moncada MD,PhD [facility] Coding Level of Care Code New Pt Level 4 (13154) Diagnoses Left lumbar radiculopathy M54.16
== END 2024-03-22 12:49 | disposition home or self-care (01) ==
PROVIDERS: PCP Internal Medicine; Referring Provider Nurse Practitioner Family; Visit Provider Physician Assistant
DX: M54.16 Radiculopathy, lumbar region (principal)
CPT/HCPCS: 99204

== ENCOUNTER → 2024-03-22 10:35 | Outpatient (BNVA) | payer OTHER, SELFPAY | PROVIDERS: PCP Internal Medicine; Visit Provider Physician Assistant | DX: M54.16 Radiculopathy, lumbar region (principal) | CPT/HCPCS: 99202 ==

== ENCOUNTER 2024-08-31 11:00 | Outpatient (REF) | payer OTHER, SELFPAY ==
--- OUTSIDE RECORDS SUMMARY | 2024-08-31 13:18 | XMS_ITS | Clinical Summary ---
Author Organization [employer] Address [address] [facility] [address] [place] [address] Care Team Providers Care Sightseeing Guide Name Role Phone Pool Roe MD Primary Care Prov ider Allergies Active Allergy Reactions Criticality Noted Date Comments Penicillin G Hives,Rash Low 11/15/2019 Medications famotidine (Pepcid) 20 MG tablet take 1 tablet by oral route 2 times every day Active acetaminophen (Tylenol) 500 MG tablet take 2 tablet by oral route every 4 - 6 hours as needed not to exceed 8 tablets per 24hrs as needed Active albuterol (ProAir HFA) 108 (90 Base) MCG/ACT inhaler inhale 2 puff by inhalation route every 4 - 6 hours as needed Active D3-1000 25 MCG (1000 UT) capsule Take 1 capsule by mouth Once daily. Active clonazePAM (KlonoPIN) 1 MG tablet TAKE 1 TABLET BY MOUTH IN THE MORNING AND TAKE 2 TABLETS BY MOUTH AT BEDTIME Active clotrimazole (Lotrimin) 1 % cream apply by topical route 2 times every day to the affected and surrounding areas of skin in the morning and evening Active cyproheptadine (Periactin) 4 MG tablet TAKE 1 TABLET BY MOUTH AT BEDTIME Active docusate sodium (Colace) 100 MG capsule Take 1 capsule by mouth 2 times daily. As needed for constipation Active montelukast (Singulair) 10 MG tablet take 1 tablet by oral route every day in the evening Active nortriptyline (Pamelor) 10 MG capsule TAKE 1 TABLET BY MOUTH AT BEDTIME Active polyethylene glycol, PEG, 3350 (MiraLax) 17 GM/SCOOP powder take (17G) by oral route every day mixed with 8 oz. water, juice, soda, coffee or tea Active sennosides (Senokot) 8.6 MG tablet take 2 tablet by oral route every day Active triamcinolone (Kenalog) 0.1 % cream apply by topical route 2 times every day a thin layer to the affected area(s) 022 Active DULoxetine (Cymbalta) [address] capsule Take 1 capsule (30 mg) by mouth in the morning. Do not crush or chew. 90 capsule 3 023 Active Lidocaine-Glyce rin (Preparation H) 5-14.4 % cream Apply to the area BID 30 g 11 023 Active omeprazole (PriLOSEC) [address] capsuleIndicati ons:Gastroesoph ageal reflux disease without esophagitis TOME CARA CAPSULA DIARIA 30 MINUTOS TO CADA HORA BEFORE A MEAL 90 capsule 1 024 Active Diclofenac Sodium (Voltaren) 1 % gel apply (2G) by topical route 3 times every day to the affected area(s) 100 g 1 024 Active atorvastatin (Lipitor) 10 MG tablet TAKE 1 TABLET BY MOUTH EVERY DAY 90 tablet 3 024 Active Calcium Carb-Cholecalci ferol 600-10 MG-MCG tablet Take 600 mg by mouth 2 times daily. 90 tablet 3 024 2024 Active baclofen (Lioresal) 5 MG tablet Take 1 tablet (5 mg) by mouth 3 times daily. 90 tablet 024 Active alendronate (Fosamax) 70 MG tablet TAKE 1 TABLET (70 MG) BY MOUTH EVERY 7 (SEVEN) DAYS. TAKE IN THE MORNING WITH A FULL GLASS OF WATER, ON AN EMPTY STOMACH, AND DO NOT TAKE ANYTHING ELSE BY MOUTH OR LIE DOWN FOR THE NEXT 30 MIN. 12 tablet 024 Active metoprolol tartrate (Lopressor) 25 MG tablet TAKE 0.5 TABLETS BY MOUTH 2 TIMES DAILY. 90 tablet 3 024 Active Wixela Inhub 250-50 MCG/ACT aerosol powderIndicatio ns:Moderate persistent asthma without complication USE 1 INHALATION IN THE MOUTH OR THROAT 2 TIMES DAILY. 180 each 1 024 Active losartan (Cozaar) 25 MG tabletIndicatio ns:Primary hypertension TOME CARA TABLETA TODOS [place] [facility] 90 tablet 024 Active amLODIPine (Norvasc) 10 MG tabletIndicatio ns:Primary hypertension TOME CARA TABLETA TODOS [place] [facility] 90 tablet 3 025 Active albuterol 108 (90 Base) MCG/ACT inhalerIndicati ons:Mild intermittent asthma without complication Inhale 2 puffs every 4 (four) hours if needed for wheezing. 18 g 11 025 2025 Active fluticasone (Flonase) 50 MCG/ACT nasal spray Administer 1-2 sprays into each nostril Once per day. Shake gently. Before first use, prime pump. After use, clean tip and replace cap. 16 g 11 025 2025 Active meloxicam (Mobic) 7.5 MG tablet TAKE 1 TABLET BY MOUTH EVERY DAY IF NEEDED FOR MODERATE PAIN 30 tablet 025 Active albuterol 108 (90 Base) MCG/ACT inhalerIndicati ons:Mild intermittent asthma without complication Inhale 2 puffs every 4 (four) hours if needed for wheezing. 18 g 11 023 2024 Discontinued(R eorder (will not trigger notification to Pharmacy)) fluticasone (Flonase) 50 MCG/ACT nasal spray Administer 1-2 sprays into each nostril Once per day. Shake gently. Before first use, prime pump. After use, clean tip and replace cap. 16 g 11 024 2024 Discontinued(R eorder (will not trigger notification to Pharmacy)) meloxicam (Mobic) 7.5 MG tablet TAKE 1 TABLET BY MOUTH EVERY DAY IF NEEDED FOR MODERATE PAIN 30 tablet 025 2024 Discontinued Active Problems Problem Noted Date Diagnosed Date Vaccination refused by patient 02/13/2024 Chronic bilateral low back pain with right-sided sciatica 10/29/2023 Assessment & Plan (03/17/2024 8:08 PM EDT): Patient had mri done, will be followed by neurosurgery, will follow up reccomendations Assessment & Plan (02/13/2024 9:10 AM EDT): Followed by pain management, pending MRI Assessment & Plan (10/29/2023 11:08 AM EDT): Will refer to pain management, she has MRI from 2021, saw neurosurgery Other fatigue 06/16/2023 Assessment & Plan (06/16/2023 8:21 PM EST): Symptoms most likely related to her chronic MDD, she is being followed by psych, will order blood work to rule-out secondary/organic causes. Primary hypertension 07/30/2022 Assessment & Plan (08/05/2024 10:51 AM EST): Controlled, continue current diet, keep low sodium diet, keep bp log, new labs will be ordered Assessment & Plan (03/17/2024 8:08 PM EDT): Most likely WCS, at home has remained stable, continue current treatment Assessment & Plan (02/13/2024 9:04 AM EDT): Controlled, continue low sodium diet and exercise as tolerated Assessment & Plan (10/29/2023 11:06 AM EDT): Controlled, on amlodipine, losartan and metoprolol, no changes will be made, continue low sodium diet Assessment & Plan (07/23/2023 2:09 PM EST): Controlled, continue amlodipine/losartan and metoprolol, follow up in 3 months, low sodium diet reinforced, bp target <140/90 Assessment & Plan (06/16/2023 8:22 PM EST): Not at target, will add low dose metoprolol BID, keep bp log, will follow up in 1 month Assessment & Plan (10/18/2022 9:31 AM EDT): Controlled, reinforced low sodium diet and exercise as tolerated, no changes will be made Assessment & Plan (07/30/2022 9:15 AM EST): Controlled, on amlodipine 10mg and losartan 25mg, reinforced low sodium diet and exercise as tolerated Bilateral tinnitus 07/30/2022 Assessment & Plan (07/30/2022 9:19 AM EST): Will order hearing test Gastroesophageal reflux disease without esophagi tis 07/30/2022 Assessment & Plan (07/30/2022 9:21 AM EST): Will renew omeprazole, reinforced lifestyle changes Arthritis 07/30/2022 Assessment & Plan (07/30/2022 9:21 AM EST): Will renew diclofenac, continue with tylenol arthritis Mild intermittent asthma without complication Assessment & Plan (08/05/2024 10:52 AM EST): No recent er visit, will renew albuterol, continue with wexela Assessment & Plan (07/30/2022 9:23 AM EST): Will renew albuterol Depressive disorder 07/29/2022 Assessment & Plan (10/29/2023 11:07 AM EDT): Followed by psych, no active suicidal/homicdal ideas, Fibromyositis 07/29/2022 Assessment & Plan (10/18/2022 9:30 AM EDT): Will start cymbalta, continue with diclofenac As needed, avoid prolongued/daily use, take tylenol when mild, apply ice/heat Encounters Date Type Department Care Team Description 08/16/2024 Refill [facility] [address] [place] [address] Pool Roe MD 08/05/2024 10:30 AM EST Telemedicine [facility] [address] [place] [address] Pool Roe MD Primary hypertension (Primary Dx); Mild intermittent asthma without complication; Dietary counseling; Exercise counseling 08/05/2024 Travel 08/04/2024 Telephone [facility] [address] [place] [address] Pool Roe MD chart prep 07/20/2024 Refill [facility] [address] [place] [address] Pool Roe MD 07/08/2024 Refill [facility] [address] [place] [address] Pool Roe MD Primary hypertension 07/06/2024 Refill [facility] [address] [place] [address] Pool Roe MD Primary hypertension 06/15/2024 Refill [facility] [address] [place] [address] Nichole Christine MD Moderate persistent asthma without complication 06/06/2024 Refill [facility] [address] [place] [address] Pool Roe MD from Last 3 Months Immunizations Name Administration Dates Next Due Tetanus Toxoid, Unspecified 11/03/2007 Social History Tobacco Use Types Packs/Day Years Used Date Smoking Tobacco: Never Smokeless Tobacco: Never Alcohol Use Standard Drinks/Week Comments Never 0 (1 standard drink = 0.6 oz pur e alcohol) Depression Answer Date Recorded Patient Health Questionnaire-9 Score 5 08/05/2024 Patient Health Questionnaire-9 Score 5 08/05/2024 Last PHQ-9: Questionnaire Data Not on file 0 08/05/2024 Housing Stability Answer Date Recorded What is your housing situation today? I have sylwia ngo 10/29/[address] you li ve. Do you have problems with any of the following? None of the above 10/29/2023 Food Insecurity Answer Date Recorded Within the past 12 months, y ou worried that your food would run out before you got money to buy more: Never True 10/29/2023 Within the past 12 months,th e food you bought just didn't last and you didn't have enough money to get more: Never True Transportation Answer Date Recorded In the past 12 months, has l ack of transportation kept you from medical appts, meetings, work or from getting things needed for daily living? No 10/29/2023 Utilities Answer Date Recorded In the past 12 months, has t he electric, gas, oil or water company threatened to shut off services in your home? No 10/29/2023 Depression Answer Date Recorded Patient Health Questionnaire-2 Score 4 08/05/2024 Comments Unknown Sex and Gender Information Value Date Recorded Sex Assigned at Female 05/06/2022 10:37 AM EDT Legal Sex Female 10:37 AM EDT Gender Identity Female 05/06/2022 10:37 AM EDT Sexual Orientation Straight 05/06/2022 10 :37 AM EDT Last Filed Vital Signs Vital Sign Reading Time Taken Comments Blood Pressure 132/64 08/05/2024 10:45 AM EST Pulse 72 08/05/2024 10:45 AM EST Temperature 36.6 ??C (97.8 ??F) 03/17/2024 12:00 PM E DT Respiratory Rate 16 03/17/2024 12:00 PM EDT Oxygen Saturation 94% 03/17/2024 12:00 PM EDT Inhaled Oxygen Concentration - - Weight 56.8 kg (125 lb 3.2 oz) 03/17/2024 12:00 PM EDT Height 139.7 cm (4' 7 ) 03/17/2024 12:00 PM EDT Body Mass Index 29.1 03/17/2024 12:00 PM EDT Plan of Treatment Health Maintenance Due Date Last Done Comments Pneumococcal Vaccine: 50+ Years (1 of 2 - PCV) 1964 Zoster Vaccines (1 of 2) 1994 DTaP/Tdap/Td Vaccines (1 - Tdap) 11/04/2007 11/03/2007 RSV Patients and Patients Aged 60 years or older (1 - 1-dose 75+ series) 2019 COVID-19 Vaccine ( season) 2024 Influenza Vaccine (#1) 2024 05/02/2016 SDOH Screening 10/28/2024 10/29/2023 Tobacco Screening 03/17/2025 03/17/2024 Alcohol/Substance Use Screening 08/05/2025 08/05/2024 Depression Screening 08/05/2025 08/05/2024, 08/05/19 25 Lipid Panel 02/16/2029 02/17/2024, 06/06, 01/17/2022, Additional history exists HIB Vaccines Aged Out No longer eligi ble based on patient's age to complete this topic HPV Vaccines Aged Out No longer eligi ble based on patient's age to complete this topic Hepatitis A Vaccines Aged Out No long er eligible based on patient's age to complete this topic Hepatitis B Vaccines Aged Out No long er eligible based on patient's age to complete this topic IPV Vaccines Aged Out No longer eligi ble based on patient's age to complete this topic Meningococcal Vaccine Aged Out No dale chloé eligible based on patient's age to complete this topic RSV under 20 months Aged Out No longe r eligible based on patient's age to complete this topic Rotavirus Vaccines Aged Out No longer eligible based on patient's age to complete this topic Procedures Procedure Name Priority Date/Time Associated Diagnosis Comments LIPID PANEL, STANDARD Routine 02/17/2024 8:52 AM EDT Primary hypertension from Last 3 Months or Most Recently Relevant to Health Maintenance Results * Lipid Panel, Standard (02/17/2024 8:52 AM EDT) Triglycerides 118 <150 mg/dL [facility] Comment:Desirable Triglyceri de: less than 150 mg/dLBorderline High Triglyceride 150-199 mg/dLHigh Triglyceride: 200-499 mg/dLVery High Triglyceride: greater than or equal to 5OO mg/dL Cholesterol 151 <200 mg/dL [facility] Comment:Desirable Cholestero l: less than 200 mg/dLBorderline High Cholesterol: 200-239 mg/dLHigh Cholesterol: greater than 239 mg/dL LDL Cholesterol Calculated 75 <100 mg/dL [facility] Comment:Desirable LDL: less than 100 mg/dLNear Optimal/Above Optimal LDL: 110- 129 mg/dLBorderline High LDL: 130-159 mg/dLHigh LDL: 160-189 mg/dLVery High LDL: greater than or equal to 190 mg/dL HDL Cholesterol 53 >40 mg/dL [facility] Comment:Desirable HDL: great er than 40 mg/dL Note: This HDL assay may give artificially low results in patients with liver disease. Blood Venous blood specimen / Unknown 02/17/2024 8:52 AM EDT 02/17/2024 2:36 PM EDT us Pool [place] MD LAB BLOOD ORDERABL ES Final Result Performing Organization Address City/State/[facility] Co de Phone Number [facility] [address] [place] [phone] from Last 3 Months or Most Recently Relevant to Health Maintenance Insurance [facility] [employer] Care Teams Sightseeing Guide Relationship Specialty Start Date End Date Pool Roe MD [address] [place] [phone] PCP - General Internal Medicine 06/12/20
--- OUTSIDE RECORDS SUMMARY | 2024-08-31 13:19 | XMS_ITS | Clinical Summary ---
Author Organization [facility] Address [address] [place] [address] Care Team Providers Care Stone Setter Apprentice Name Role Phone Pool Roe Primary Care Provide r Allergies Active Allergy Reactions Criticality Noted Date Comments Penicillins Low 11/17/2009 Other Reaction(s): Rash/Dermatitis Shellfish Containing Products 08/17/2019 Medications albuterol 2.5 mg /3 mL (0.083 %) nebulizer solution Inhale 3 mL (2.5 mg total) by mouth. Active albuterol HFA (PROAIR HFA ; PROVENTIL HFA ; VENTOLIN HFA) 90 mcg/actuation inhaler Inhale 2 puffs by mouth. 06/09/20 17 Active alendronate (FOSAMAX) 70 mg tablet TAKE 1 TABLET ONCE WEEKLY ON FRIDAY MORNINGS AT LEAST 30 MIN BEFORE FIRST FOOD/DRINK/MED OF DAY 10/20/19 22 Active amLODIPine (NORVASC) 10 mg tablet TOME CARA TABLETA TODOS LOS D 10/30/19 22 Active atorvastatin (LIPITOR) 10 mg tablet TOME CARA TABLETA TODOS LOS D? 05/31/20 18 Active calcium carbonate-vit D3-min 600 mg calcium- 400 unit tablet TOME CARA TABLETA DOS VECES AL D A 10/26/19 22 Active cholecalcifero l (VITAMIN D-3) 25 mcg (1,000 unit) tablet Take 1 tablet (1,000 Units total) by mouth 1 (one) time each day. Active clonazePAM (KlonoPIN) 1 mg tablet Take 1 tablet (1 mg total) by mouth. Active cyproheptadine (PERIACTIN) 4 mg tablet Take 1 tablet (4 mg total) by mouth. Active fluticasone (VERAMYST) 27.5 mcg/actuation nasal spray Administer 2 sprays into affected nostril(s). Active fluticasone propion-salmet Cally (ADVAIR HFA) 230-21 mcg/actuation inhaler Inhale 2 puffs by mouth. 09/24/19 18 Active fluticasone propionate (FLONASE) 50 mcg/actuation nasal spray USE 2 SPRAYS DAILY SEG?N LO INDICADO 08/05/19 19 Active ketotifen (ZADITOR) 0.025 % ophthalmic solution PONGA CARA GOTA EN LOS DOS OJOS DOS VECES AL D?A 06/10/20 18 Active lactulose (CHRONULAC) solution TAKE 30 ML'S BY MOUTH 2 TIMES DAILY FOR 30 DAYS. 12/26/19 24 Active losartan (COZAAR) 25 mg tablet Take 1 tablet (25 mg total) by mouth 1 (one) time each day. 07/25/19 24 Active meloxicam (MOBIC) 7.5 mg tablet Take 1 tablet (7.5 mg total) by mouth. Active mirtazapine (REMERON) 15 mg tablet TOME CARA TABLETA TODOS LOS D AL ACOSTARSE 07/22/19 24 Active senna 8.6 mg tablet TOME DOS TABLETAS POR V A ORAL TODOS LOS D 10/26/19 22 Active wheat dextrin 3 gram/3.5 gram powder in packet Take by mouth. Activ e omeprazole (PriLOSEC) [address] capsule TAKE 1 CAPSULE BY MOUTH 2 TIMES DAILY NEEDED FOR OTHER (GERD) FOR UP TO 360 DAYS. 180 capsule 3 08/24/19 25 Active omeprazole (PriLOSEC) [address] capsule Take 1 capsule (20 mg total) by mouth. 09/10/19 24 025 Discontinued Active Problems Problem Noted Date Diagnosed Date Generalized osteoarthritis 04/14/2024 Lumbar spondylosis 01/11/2022 Overview (04/14/2024): Last Assessment & Plan: Patient describes pain in her hips, knees left >right lateral calf. She was somewhat of a poor historian, at first states she had 1 year of right leg pain that would primarily affect her knee, she had an injection in her knee x3 but did not feel it helped, by Dr. Faustin. Then she states a month ago she went to the ED in severe pain that was radiating in the left knee and lateral calf, then stated the pain has been going on for a year also in the left leg. She states she can sit for 30 to 60 minutes. She has difficulty with walking any significant distance, does need to sit and take breaks with walking, feels she could go about 15 minutes. She denies bowel bladder incontinence or saddle anesthesia. She rates the pain in her legs 7- 10/10. She states today she is not experiencing any significant back pain, but at times does have transverse low back pain that radiates up the left lateral back. She tried physical therapy 3 times in 2020, states it did not help her. She is being [facility]. Patient had MRI lumbar spine 12/18/2021 [facility] that shows multilevel degenerative changes including grade 1 L3-4 spondylolisthesis with moderate to severe central stenosis and L4-5 stenosis. She is noted to have left L3-4 foraminal stenosis. She has transitional anatomy with L5 sacralization. She also has degenerative disc disease noted at T12-L1. I will have patient go for lumbar spine flexion-extension x-rays to rule out any instability. I will review her MRI with Dr. Dow and see if she recommends surgical intervention. Patient does have osteoporosis, I will try to obtain PCP notes to see severity. Patient also mentioned she has history of brain aneurysm, CT brain angiography 08/28/2018 showed a stable left internal carotid artery aneurysm 3 mm. I will review this with Dr. Dow and see if she wants any follow-up. All questions answered on today's visit. 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 Depression 07/03/2017 Gastroesophageal reflux disease 04/27/2017 Allergic rhinitis 04/27/2017 Asthma 04/17/2017 Cerebrovascular small vessel disease 02/11/2017 Hypertension 02/11/2017 Hyperlipidemia 05/02/2016 Fibromyalgia 05/02/2016 Atopic dermatitis 12/26/2015 Patent foramen ovale 07/12/2015 Diverticulosis of intestine 03/14/2015 Hiatal hernia 11/07/2014 Vitamin D deficiency 06/15/2013 Osteoporosis 06/11/2013 Immunizations Name Administration Dates Next Due Influenza trivalent, 0.5mL, preservative free (Fluarix; FluLaval; Fluzone) ages 6mo and older (Afluria) 3 years and older 05/02/2016 Surgical History Surgery Date Site/Laterality Comments CATARACT EXTRACTION PROCEDURE: HISTORICAL CATARACT REMOVAL TUBAL LIGATION PROCEDURE: HISTORICAL TUBAL LIGATION OTHER SURGICAL HISTORY PROCEDURE: MA RPR RECRT INGUINAL HERNIA ANY AGE REDUCIBLE Medical History Medical History Date Comments Cervical rib syndrome 07/03/2017 DX:Cervica l rib syndrome Depression 07/03/2017 DX:Depression Prediabetes 07/03/2017 DX:Prediabetes Allergic rhinitis 04/27/2017 DX:Allergic rh initis Asthma 04/17/2017 DX:Asthma Atopic dermatitis 12/26/2015 DX:Atopic derm atitis Cerebrovascular small vessel disease 02/11/2017 DX:Cerebrovascular small vessel disease Diverticulosis of intestine 03/14/2015 DX:D iverticulosis of intestine Fibromyalgia 05/02/2016 DX:Fibromyalgia Gastroesophageal reflux disease 04/27/2017 DX:Gastroesophageal reflux disease Generalized osteoarthritis 02/14/2015 DX:Ge neralized osteoarthritis Hiatal hernia 11/07/2014 DX:Hiatal hernia Hyperlipidemia 05/02/2016 DX:Hyperlipidemi a Hypertension 02/11/2017 DX:Hypertension Osteoporosis 06/11/2013 DX:Osteoporosis Patent foramen ovale 07/12/2015 DX:Patent f oramen ovale Vitamin D deficiency 06/15/2013 DX:Vitamin D deficiency Systolic ejection murmur 08/26/2017 DX:Syst olic ejection murmur Tricuspid regurgitation 09/15/2017 DX:Tricu spid regurgitation Lesion of ovary 01/21/2018 DX:Lesion of ova ry Chronic constipation 05/20/2018 DX:Chronic constipation Social History Tobacco Use Types Packs/Day Years Used Date Smoking Tobacco: Never Smokeless Tobacco: Never Alcohol Use Standard Drinks/Week Comments No 0 (1 standard drink = 0.6 oz pur e alcohol) Comments Unknown Sex and Gender Information Value Date Recorded Sex Assigned at Not on file Legal Sex Female 10:21 AM EST Gender Identity Not on file Sexual Orientation Not on file Obstetrics History Last Filed Vital Signs Vital Sign Reading Time Taken Comments Blood Pressure 142/62 04/07/2024 10:41 AM EDT Sitting L Arm Pulse 88 04/07/2024 10:41 AM EDT Temperature - - Respiratory Rate - - Oxygen Saturation - - Inhaled Oxygen Concentration - - Weight 58 kg (127 lb 12.8 oz) 10:41 AM EDT Height 144.8 cm (4' 9 ) 04/07/2024 10:4 1 AM EDT Body Mass Index 27.66 04/07/2024 10:41 AM EDT Plan of Treatment Upcoming Encounters Date Type Department Care Team (Late st Contact Info) Description 10/06/2024 11:10 AM EDT Office Visit Gastroenterology - [place] [address] [place] [address] Xochitl Hammond PA [address] [place] [address] [place] [address] Health Maintenance Due Date Last Done Comments DTaP,Tdap,and Td Vaccines (1 - Tdap) 1964 Pneumococcal Vaccine: 50+ Ye ars (1 of 2 - PCV) 1964 Zoster Vaccines (1 of 2) 1994 RSV Immunization Patients 60 + Years Old (1 - 1-dose 75+ series) 2019 Cholesterol Screening (Lipid Panel) 06/04/2022 Depression Screening 06/04/2022 Falls Risk Assessment 06/04/2022 Osteoporosis Screening (Bone Density Screening) 06/04/2022 Social Influencers of Health Screening 06/04/2022 Hypertension/CHF/CAD Annual BMP Blood Test 06/13/2022 COVID-19 Vaccine (1 - 2023-2 5 season) 2024 Influenza Vaccine (#1) 2024 05/02/2016 HIB Vaccines Aged Out No longer eligi [...] on patient's age to complete this topic MMR Vaccines Aged Out No longer eligi ble based on patient's age to complete this topic Meningococcal ACWY Vaccine Aged Out N o longer eligible based on patient's age to complete this topic Meningococcal B Vacine Aged Out No lo nger eligible based on patient's age to complete this topic RSV Immunization Patients Un eyal 20 months Aged Out No longer eligible b ased on patient's age to complete this topic Varicella Vaccines Aged Out No longer eligible based on patient's age to complete this topic Care Teams Stone Setter Apprentice Relationship Specialty Start Date End Date Pool Roe [address] [place] [address] PCP - General Internal Medicine 01/11/22
--- OUTSIDE RECORDS SUMMARY | 2024-08-31 13:19 | XMS_ITS | Encounter Summary ---
Author Organization [employer] Address [address] [facility] 7t [place] [address] Care Team Providers Care Medical Bill Processor Name Role Phone Pool Roe MD Primary Care Prov ider Reason for Visit * Reason Comments Med Change Request Encounter Details Date Type Department Care Team ([facility] st Contact Info) Description 07/23/2023 Refill [facility] [address] [place], [place] [phone] Pool Roe MD 505 [place] [address] Social History Tobacco Use Types Packs/Day Years Used Date Smoking Tobacco: Never Smokeless Tobacco: Never Alcohol Use Standard Drinks/Week Comments Never 0 (1 standard drink = 0.6 oz pur e alcohol) Housing Stability Answer Date Recorded What is your housing situation today? I have sylwia ngo 05/17/[address] you li ve. Do you have problems with any of the following? None of the above 05/17/2023 Food Insecurity Answer Date Recorded Within the past 12 months, y ou worried that your food would run out before you got money to buy more: Never True 05/17/2023 Within the past 12 months,th e food you bought just didn't last and you didn't have enough money to get more: Never True 05/2023 Transportation Answer Date Recorded In the past 12 months, has l ack of transportation kept you from medical appts, meetings, work or from getting things needed for daily living? No 05/17/2023 Utilities Answer Date Recorded In the past 12 months, has t he electric, gas, oil or water company threatened to shut off services in your home? No 05/17/2023 Depression Answer Date Recorded Patient Health Questionnaire-2 Score 0 07/30/2022 Comments Unknown Sex and Gender Information Value Date Recorded Sex Assigned at Female 05/06/2022 10:37 AM EDT Legal Sex Female 10:37 AM EDT Gender Identity Female 05/06/2022 10:37 AM EDT Sexual Orientation Straight 05/06/2022 10 :37 AM EDT documented as of this encounter Plan of Treatment Not on file documented as of this encounter Visit Diagnoses Not on filedocumented in this encounter Care Teams Medical Bill Processor Relationship Specialty Start Date End Date Pool Roe MD [address] [place] [id number] PCP - General Internal Medicine 06/12/20 documented as of this encounter
--- OUTSIDE RECORDS SUMMARY | 2024-08-31 13:19 | XMS_ITS | Encounter Summary ---
Author Organization [employer] Address [address] [facility] 7t [place] [address] Care Team Providers Care Final Installer Inspector Name Role Phone Pool Roe MD Primary Care Prov ider Encounter Details Date Type Department Care Team ([facility] st Contact Info) Description 08/05/2024 10:30 AM EST Telemedicine [facility] MED & PEDS [address] [place], [place] [phone] Pool Roe MD 505 [place] [address] Primary hypertension (Primary Dx); Mild intermittent asthma without complication; Dietary counseling; Exercise counseling Social History Tobacco Use Types Packs/Day Years [...] AM EDT documented as of this encounter Last Filed Vital Signs Vital Sign Reading Time Taken Comments Blood Pressure 132/64 08/05/2024 10:45 AM EST Pulse 72 08/05/2024 10:45 AM EST Temperature - - Respiratory Rate - - Oxygen Saturation - - Inhaled Oxygen Concentration - - Weight - - Height - - Body Mass Index - - documented in this encounter Progress Notes * Pool Madrid MD - 08/05/2024 10:30 AM EST Subjective Patient ID: Adele Box is a 79 y.o. female who presents for No chief complaint on file.. Hypertension This is a chronic problem. Pertinent negatives include no chest pain, headaches, palpitations, peripheral edema or shortness of breath. Review of Systems Respiratory: Negative for shortness of breath. Cardiovascular: Negative for chest pain and palpitations. Neurological: Negative for headaches. Objective Physical Exam Neurological: General: No focal deficit present. Mental Status: She is oriented to person, place, and time. Psychiatric: Mood and Affect: Mood normal. Behavior: Behavior normal. Assessment/Plan Problem List Items Addressed This Visit Primary hypertension - Primary Controlled, continue current diet, keep low sodium diet, keep bp log, new labs will be ordered Relevant Orders CBC auto differential Comprehensive Metabolic Panel Lipid Panel, Standard Mild intermittent asthma without complication No recent er visit, will renew albuterol, continue with wexela Relevant Medications albuterol 108 (90 Base) MCG/ACT inhaler Other Visit Diagnoses Dietary counseling Exercise counseling documented in this encounter Miscellaneous Notes * Assessment & Plan Note - Pool Madrid MD - 08/05/2024 10:52 AM ESTAssociated Problem(s): Mild intermittent asthma without complication No recent er visit, will renew albuterol, continue with wexela * Assessment & Plan Note - Pool Madrid MD - 08/05/2024 10:48 AM ESTAssociated Problem(s): Primary hypertension Controlled, continue current diet, keep low sodium diet, keep bp log, new labs will be ordered documented in this encounter Plan of Treatment Scheduled Orders Name Type Priority Associated Diagnoses Orde r Schedule CBC auto differential Lab Routine Primary hypertension Expected: 08/05/2024 (Approximate), Expires: 08/05/2025 Comprehensive Metabolic Panel Lab Routine Primary hypertension Expected: 08/05/2024 (Approximate), Expires: 08/05/2025 Lipid Panel, Standard Lab Routine Primary hypertension Expected: 08/05/2024 (Approximate), Expires: 08/05/2025 documented as of this encounter Visit Diagnoses Diagnosis Primary hypertension- Primary Unspecified essential hypertension Mild intermittent asthma without complication Dietary counseling Dietary surveillance and counseling Exercise counseling documented in this encounter Additional Health Concerns Assessment Noted Time PHQ-9 Depression Total Score: 5 08/05/19 25 10:15 AM EST documented as of this encounter Care Teams Final Installer Inspector Relationship Specialty Start Date End Date Pool Roe MD [address] [place] [id number] PCP - General Internal Medicine 06/12/20 documented as of this encounter
--- OUTSIDE RECORDS SUMMARY | 2024-08-31 13:19 | XMS_ITS | Encounter Summary ---
Author Organization [employer] Address [address] [facility] 7t [place] [address] Care Team Providers Care Electronic News Gathering Camera Person Name Role Phone Pool Roe MD Primary Care Prov ider Reason for Visit * Reason Comments Med Refill Encounter Details Date Type Department Care Team ([facility] st Contact Info) Description 08/16/2024 Refill [facility] MED & PEDS [address] [place], [place] [phone] Pool Roe MD [address] [place] [address] Social History Tobacco Use Types Packs/Day Years [...] Diagnoses Not on filedocumented in this encounter Additional Health Concerns Assessment Noted Time PHQ-9 Depression Total Score: 5 08/05/19 25 10:15 AM EST documented as of this encounter Care Teams Electronic News Gathering Camera Person Relationship Specialty Start Date End Date Pool Roe MD [address] [place] [id number] PCP - General Internal Medicine 06/12/20 documented as of this encounter
--- OUTSIDE RECORDS SUMMARY | 2024-08-31 13:19 | XMS_ITS | Encounter Summary ---
Author Organization [employer] Address [address] [facility] [address] 7t [place] [address] Care Team Providers Care Skiver Blockers Name Role Phone Pool Roe MD Primary Care Prov ider Encounter Details Date Type Department Care Team (Latest Contact Info) Description 08/05/2024 Travel Social History Tobacco Use Types Packs/Day Years [...] documented as of this encounter Care Teams Skiver Blockers Relationship Specialty Start Date End Date Pool Roe MD [address] [place] [phone] PCP - General Internal Medicine 06/12/20 documented as of this encounter
--- OUTSIDE RECORDS SUMMARY | 2024-08-31 13:19 | XMS_ITS | Encounter Summary ---
Author Organization [employer] Address [address] [facility] 7 [place] [address] Care Team Providers Care Skid Man Name Role Phone Pool Roe MD Primary Care Prov ider Reason for Visit * Reason Onset Date Comments chart prep 08/04/2024 Encounter Details Date Type Department Care Team ([facility] Contact Info) Description 08/04/2024 Telephone [facility] MED & PEDS [address] [place], [place] [phone] Pool Roe MD [address] [place] [address] chart prep Social History Tobacco Use Types Packs/Day Years [...] AM EDT documented as of this encounter Miscellaneous Notes * Telephone Encounter - Sasha Li [place] - 08/04/2024 10:54 AM EST Chart Prep Labs: done Images: done Vaccines due: yes Referrals: pending appt Screenings: none Overdue care gaps: Sbirt, SDOH, PHQ-9 documented in this encounter Plan of Treatment Not on file documented as of this encounter Visit Diagnoses Not on filedocumented in this encounter Additional Health Concerns Assessment Noted Time PHQ-9 Depression Total Score: 11 024 10:35 AM EDT documented as of this encounter Care Teams Skid Man Relationship Specialty Start Date End Date Pool Roe MD [address] [place] [phone] PCP - General Internal Medicine 06/12/20 documented as of this encounter
--- OUTSIDE RECORDS SUMMARY | 2024-08-31 13:19 | XMS_ITS | Encounter Summary ---
Author Organization [employer] Address [address] [facility] 7t [place] [address] Care Team Providers Care Labor Economics Professor Name Role Phone Pool Roe MD Primary Care Prov ider Reason for Visit * Reason Comments Med Change Request Encounter Details Date Type Department Care Team ([facility] Contact Info) Description 04/08/2024 Refill [facility] [address] [place], [place] [phone] Pool Roe MD [address] [place] [address] Social History Tobacco Use Types Packs/Day Years Used Date Smoking Tobacco: Never Smokeless Tobacco: Never Alcohol Use Standard Drinks/Week Comments Never 0 (1 standard drink = 0.6 oz pur e alcohol) Depression Answer Date Recorded Patient Health Questionnaire-9 Score 11 10/29/2023 Patient Health Questionnaire-9 Score 11 10/29/2023 Last PHQ-9: Questionnaire Data Not on file 0 10/29/2023 Housing Stability Answer Date Recorded What is [...] Date Recorded Patient Health Questionnaire-2 Score 4 10/29/2023 Comments Unknown Sex and Gender Information Value [...] documented as of this encounter Care Teams Labor Economics Professor Relationship Specialty Start Date End Date Pool Roe MD [address] [place] [phone] PCP - General Internal Medicine 06/12/20 documented as of this encounter
[2024-08-31 14:21] LABS: MANUAL DIFF FLAG NO
[2024-08-31 14:28] LABS: Basophils Percent Auto 0.3 % (0-2); Eosinophils Percent Auto 0.1 % (0-4); Imm Gran Abs Auto 0.03 X10*3/uL (0.00-0.03); Imm Gran Pct Auto 0.3 % (0.0-0.4); Lymphocytes Absolute Auto 3.3 X10*3/uL (1.2-4.9); Lymphocytes Percent Auto 29.2 % (20-40); Mean Corpuscular HGB Conc 31.6 g/dl (31.0-35.0); Mean Corpuscular Hemoglobin 29.4 pg (27.0-33.0); Mean Corpuscular Volume 93.1 fL (80.0-98.0); Mean Platelet Volume 10.4 fL (9.4-12.3); Monocytes Percent Auto 9.2 % (2-11); Neutrophils Absolute Auto 6.8 x10*3/uL (2.0-8.3); Neutrophils Percent Auto 60.9 % (45-73); Platelet Count 322 X10*3/uL (160-400); Red Blood Count 4.08 X10*6/uL (4.20-5.50); Red Cell Distribution Width 13.4 % (11.0-16.0); White Blood Count 11.1 X10*3/uL (4.8-10.8)
[2024-08-31 14:44] LABS: Alanine Aminotransferase 23 U/L (0-31); Albumin Level 4.3 g/dL (3.5-5.0); Alkaline Phosphatase 65 U/L (39-117); Anion Gap 10 (12-20); Aspartate Amino Transferase 24 U/L (5-31); Bilirubin Total 0.5 mg/dL (0.0-1.0); Blood Urea Nitrogen 17 mg/dL (9-16); Calcium 9.5 mg/dL (8.4-10.2); Carbon Dioxide 28 mmol/L (22-29); Chloride 105 mmol/L (96-108); Cholesterol 148 mg/dL (<200); Estimated Glomerular Filt Rate > 60; Glucose Random 88 mg/dL (60-115); HDL Cholesterol 64 mg/dL (>40); LDL Cholesterol Calculated 65 mg/dL (<100); Potassium 4.2 mmol/L (3.3-5.1); Sodium 139 mmol/L (135-145); Total Protein 7.8 g/dL (6.5-8.0); Triglycerides 95 mg/dL (<150)
== END 2024-08-31 11:01 | disposition home or self-care (01) ==
LOC: HO.CHCLDS 11:00
PROVIDERS: Visit Provider Internal Medicine
DX: I10 Essential (primary) hypertension (principal)
CPT/HCPCS: 36415; 80053; 80061; 85025

== ENCOUNTER 2025-02-15 09:41 | Outpatient (REF) | payer OTHER, SELFPAY ==
--- OUTSIDE RECORDS SUMMARY | 2025-02-15 10:21 | XMS_ITS ---
Author Name Lisa Kim APRN Address [address] [place] [address] Phone [phone] [facility] Care Team Providers Care Marine Engineering Consultant Name Role Phone Regi Kim Unavailable [phone] [facility] Unavailable [phone] Reason for Referral Not Available Allergies, adverse reactions, alerts No known allergies Problem List No known problems Encounters Encounters Type Facility Date of Service Diagnosis/Co mplaint Unlisted special service; to be used for medical record reviews and reporting CPTII codes (1111F, etc) [facility] [place]/2024 Encounter for other specifie d aftercare Unlisted special service; to be used for medical record reviews and reporting CPTII codes (1111F, etc) [facility] [place]/2024 Social History Sex Female History of Procedures Procedures Service Procedure code Service date Servicing provider Phone# Unlisted special service; to be used for medical record reviews and reporting CPTII codes (1111F, etc) [address] 2024-11-15 No Data Available No Data Availa ble Medications prescribed in hospital were reviewed and reconciled against what they were taking prior to admission during today's visit. (1111F) 1111F 2024-11-15 No Data Available No Data Availa ble Functional Status No Information Mental Status No Information Assessments Not Available Plan of Care Not Available
--- OUTSIDE RECORDS SUMMARY | 2025-02-15 10:21 | XMS_ITS | Encounter Summary ---
Author Organization [employer] Address [address] [facility] 7t [place] [address] Care Team Providers Care Chip Tester Name Role Phone Pool Roe MD Primary Care Prov ider Reason for Visit * Reason Comments Med Change Request Encounter Details Date Type Department Care Team ([facility] Contact Info) Description 04/08/2024 Refill [facility] [address] [place], [place] [phone] Pool Roe MD [address] [place] [address] Social History Tobacco Use Types Packs/Day Years [...] documented as of this encounter Care Teams Chip Tester Relationship Specialty Start Date End Date Pool Roe MD [address] [place] [id number] PCP - General Internal Medicine 06/12/20 documented as of this encounter
--- OUTSIDE RECORDS SUMMARY | 2025-02-15 10:21 | XMS_ITS | Clinical Summary ---
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 7 Active Wixela Inhub 250-50 mcg/dose diskus inhaler Inhale 1 puff by mouth 2 (two) times a day. Active amLODIPine (NORVASC) 10 mg tablet Take 1 tablet (10 mg total) by mouth 1 (one) time each day. 30 each 5 Active apixaban (ELIQUIS) 5 mg tabletIndications:p ulmonary thromboembolism Take 1 tablet (5 mg total) by mouth 2 (two) times a day. 60 each 5 Active atorvastatin (LIPITOR) 40 mg tablet Take 1 tablet (40 mg total) by mouth at bedtime. 30 each 5 Active clonazePAM (KlonoPIN) 0.5 mg tablet Take 1 tablet (0.5 mg total) by mouth at bedtime as needed (anxiety/inso mnia) for up to 7 days. Max Daily Amount: 0.5 mg 7 tablet 5 Active Active Problems Problem Noted Date Diagnosed Date CVA (cerebral vascular accident) (CMS/HCC V24, C MS/HCC V28) 11/01/2024 Generalized osteoarthritis 04/14/2024 Lumbar spondylosis 01/11/2022 Overview [...] Center. Patient had MRI lumbar spine 12/18/2021 [facility] that shows multilevel degenerative changes including grade [...] 11/07/2014 Vitamin D deficiency 06/15/2013 Osteoporosis 06/11/2013 Encounters Date Type Department Care Team Description 01/27/2025 11:15 AM EDT Evaluation [facility] 175 [facility] [address] [place] [address] Daquan Todd, PT Cerebrovascular accident (CVA) due to embolism of cerebral artery (CMS/HCC V24, CMS/HCC V28) 01/09/2025 Telephone Gastroenterology [facility] 175 [facility] 175 [facility] [address] [place] [address] Xochitl Hammond PA 12/30/2024 2:00 PM EDT Office Visit [facility] Hematology Oncology [address] [place] [phone] Nilam Rose MD Pulmonary embolism, unspecified chronicity, unspecified pulmonary embolism type, unspecified whether acute cor pulmonale present (CMS/HCC V24, CMS/HCC V28) (Primary Dx); Hiatal hernia; Cerebrovascular accident (CVA) due to embolism of cerebral artery (CMS/HCC V24, CMS/HCC V28) 12/27/2024 8:30 AM EDT - 12/27/2024 11:59 PM EDT Hospital Encounter [facility] Xray [address] [place] [phone] Gastroesophageal reflux disease without esophagitis; Hiatal hernia; Epigastric abdominal pain; Diverticulosis; Constipation, unspecified constipation type Discharge Disposition: Home or Self Care 12/03/2024 12:30 PM EDT Treatment [facility] Occupational Therapy [address] [place] [phone] NateniranjanSatyadoris, BRUNNER/L Cerebrovascular accident (CVA) due to embolism of cerebral artery ([facility] V24, [facility] V28) (Primary Dx) 12/01/2024 2:30 PM EDT Treatment [facility] Occupational Therapy [address] [place] [phone] NateniranjanKassideandra, BRUNNER/L Cerebrovascular accident (CVA) due to embolism of cerebral artery ([facility] V24, [facility] V28) (Primary Dx) 11/19/2024 2:00 PM EDT Treatment [facility] Occupational [address] [phone] Nateniranjan Joseph, BRUNNER/L Cerebrovascular accident (CVA) due to embolism of cerebral artery ([facility] V24, [facility] V28) (Primary Dx) 11/18/2024 9:45 AM EDT Evaluation [facility] Speech Therapy [address] [place] [phone] Joan Fowler, RN OBGYN Cognitive communication disorder (Primary Dx); Cerebrovascular accident (CVA) due to embolism of cerebral artery ([facility] V24, [facility] V28) 11/18/2024 Plan of Care Documentation [facility] Speech Therapy [address] [place] [phone] 11/15/2024 11:00 AM EDT Evaluation [facility] Occupational Therapy [address] [place] [phone] Jonathan Chaparro, FRANCIS Cerebrovascular accident (CVA) due to embolism of cerebral artery ([facility] V24, [facility] V28) 11/15/2024 Plan of Care Documentation [facility] Occupational Therapy [address] [place] [phone] from Last 3 Months Immunizations Name Administration Dates Next Due Influenza trivalent, 0.5mL, preservative free (Fluarix; FluLaval; Fluzone) ages 6mo and older (Afluria) 3 years and older 05/02/2016 Surgical History Surgery Date Site/Laterality Comments CATARACT EXTRACTION PROCEDURE: HISTORICAL CATARACT REMOVAL TUBAL LIGATION PROCEDURE: HISTORICAL TUBAL LIGATION OTHER SURGICAL HISTORY PROCEDURE: [place] RPR RECRT INGUINAL HERNIA ANY AGE REDUCIBLE [...] drink = 0.6 oz pur e alcohol) Health Literacy Answer Date Recorded How often do you need to hav e someone help you when you read instructions, pamphlets, or other written material from your doctor or pharmacy? Always 11/12/2024 Caregiver: How often do you need to have someone help you when you read instructions, pamphlets, or other written material from your doctor or pharmacy? Not on file 11/12/2024 Transportation Answer Date Recorded Has the lack of transportati on kept you from meetings, work, or from getting things needed for daily living? No Has the lack of transportati on kept you from medical appointments or from getting medications? No 11/02/2024 Social Isolation Answer Date Recorded How often do you feel lonely or isolated from th ose around you? Rarely 11/12/2024 Food Risk Answer Date Recorded Within the past 12 months we worried whether our food would run out before we got money to buy more. Not asked 11/12/2024 Within the past 12 months th e food we bought just didn't last and we didn't have money to get more. Not asked 11/12/2024 Interpersonal Safety Answer Date Record ed Physical Abuse 11/01/2024 Verbal Abuse 11/01/2024 Comments Unknown Sex and Gender Information Value Date Recorded Sex Assigned at Female 10/21/2024 1:04 PM EDT Legal Sex Female 10:21 AM EST Gender Identity Female 10/21/2024 1:05 PM EDT Sexual Orientation Straight 10/21/2024 1: 05 PM EDT Obstetrics History Last Filed Vital Signs Vital Sign Reading Time Taken Comments Blood Pressure 124/53 12/30/2024 2:11 PM EDT Pulse 89 12/30/2024 2:11 PM EDT Temperature 36.8 C (98.3 F) 12/30/2024 2:11 PM EDT Respiratory Rate 18 11/13/2024 8:01 AM EDT Oxygen Saturation 95% 12/30/2024 2:11 PM EDT Inhaled Oxygen Concentration - - Weight 49.3 kg (108 lb 9.6 oz) 12/30/2024 2:11 P M EDT Height 137.2 cm (4' 6 ) 12/30/2024 2:11 PM EDT Body Mass Index 26.18 12/30/2024 2:11 PM EDT Plan of Treatment Upcoming Encounters Date Type Department Care Team (Late st Contact Info) Description 02/17/2025 12:30 PM EDT Treatment [facility] [address] [phone] Daquan Todd PT 02/22/2025 12:30 PM EDT Treatment [facility] [address] [phone] eSrjio Duncan, PATHOLOGY SUPERVISOR 02/24/2025 12:30 PM EDT Treatment [address] [phone] Daquan Todd, PT 03/01/2025 11:15 AM EDT Treatment [address] [phone] Serjio Duncan, PATHOLOGY SUPERVISOR 03/03/2025 11:00 AM EDT Treatment [address] [phone] Daquan Todd, PT 03/08/2025 11:00 AM EDT Treatment [address] [phone] Daquan Todd, PT 03/10/2025 11:00 AM EDT Treatment [address] [phone] Serjio Duncan, PATHOLOGY SUPERVISOR 03/15/2025 11:00 AM EDT Treatment [address] [phone] Daquan Todd, PT 03/31/2025 11:30 AM EDT Office Visit Gastroenterology [facility] [address] [phone] Xochitl Hammond PA [address] [address] 09/14/2025 2:00 PM EDT Office Visit [facility] Hematology Oncology [address] [place] [phone] Nilam Santillan MD [address] [place] [phone] Health Maintenance Due Date Last Done Comments DTaP,Tdap,and Td Vaccines (1 - Tdap) 1964 Pneumococcal Vaccine: 50+ Years (1 of 2 - PCV) 1963 Zoster Vaccines (1 of 2) 1994 RSV Immunization Adult Patients (1 - 1-dose 75+ series) 2019 Medicare Annual Wellness Visit 06/04/2022 Osteoporosis Screening (Bone Density Screening) 06/04/2022 COVID-19 Vaccine (1 - season) 2024 Influenza Vaccine (#1) 2025 05/02/2016 Hypertension/CHF/CAD Annual BMP Blood Test 11/11/2025 11/11/2024, 11/02/2024, 08/31/2024, Additional history exists Social Influencers of Health Screening 11/12/2025 11/12/2024 Falls Risk Assessment 11/13/2025 11/13/2024 Cholesterol Screening (Lipid Panel) 08/31/2029 08/31/2024, 02/17/2024 Depression Screening Completed 11/12/2024 HIB Vaccines Aged Out No longer eligi [...] age to complete this topic Meningococcal B Vaccine Aged Out No l onger eligible based on patient's age to complete this topic RSV Immunization Patients Under 20 months Aged Out No longer eligible based on patient's age to complete this topic Varicella Vaccines Aged Out No longer eligible based on patient's age to complete this topic Goals Goal Patient Goal Type Associated Problems Recent Progress Patient-Stated? Author Pt goal General Yes Jonathan Chaparro, OT Note: Get better OT STG 6-8 visits General No Jonathan Chaparro, OT Note: Patient will demo B UE AROM improved by 5-10* for increased ease of donning a shirt Patient will demo L employment manager strength >= 45# to be able to turn a door knob, Patient will demo L pinch strength improved by 1-2# to be able to open packages, Patient will demo improved FMC as evidenced by L 9 hole peg test<= 58 sec to be able to manage fasteners, Patient will demo improved GMC as evidenced by L box and blocks score >= 28 to be able to open a drawer with L UE, and Patient will perform initial HEP MOD I OT LTG 12 visits General No Jonathan Chaparro, OT Note: Patient will demo B UE AROM WFL for basic ADLs, Patient will demo B UE strength WFL for basic ADls, Patient will demo L employment manager strength >= 50# to be able to hold a pot for cooking, Patient will demo L lateral pinch strength >= 14# to be able to perform light meal prep, Patient will demo improved FMC as evidenced by L 9 hole peg test<= 50 sec to be able to fold laundry, Patient will demo improved GMC as evidenced by L box and blocks score >= 31 to be able to sweep, and Patient will perform HEP MOD I PT LTGs General No Daquan Todd, PT Note: Pt will increase FGA to 15/30 with LAD to indicate improved balance with functional mobility Pt will transfer to/from all seated surfaces with LAD mod independent Pt will ambulate x50 ft with LAD mod independent in the home Pt will ascend/descend 12 steps with LAD and supervision Pt will be independent with HEP Procedures Procedure Name Priority Date/Time Associated Diagnosis Comments XR ESOPHAGRAM Routine 12/27/2024 12:48 PM EDT Gastroesophageal reflux disease without esophagitis Hiatal hernia Epigastric abdominal pain Diverticulosis Constipation, unspecified constipation type COMPREHENSIVE METABOLIC PANEL Routine 11/11/2024 5:53 AM EDT from Last 3 Months or Most Recently Relevant to Health Maintenance Results * XR Esophagram (12/27/2024 12:48 PM EDT) Anatomical Region Laterality Modality Head and Neck Radiographic Rabia ging 12/27/2024 4:19 PM EDT Impressions 12/27/2024 5:02 PM EDT 1. Severe esophageal dysmotility. 2. Moderately sized, fixed hiatal hernia, grossly unchanged when compared to prior imaging from July 2023. -------- FINAL REPORT -------- Dictated By: Joann Ding Dictated Date: 12/27/2024 16:19 ET Assigned Physician: Verónica Mansfield Reviewed and Electronically Signed By: Verónica Mansfield Signed Date: 12/27/2024 17:02 ET Workstation ID: [id number] Transcribed By: Self Edit Transcribed Date: 12/27/2024 16:27 ET Resident/PA/GAMING WORKER: Joann Ding Narrative 12/27/2024 5:02 PM EDT FINDINGS: Double contrast esophagram performed. COMPARISON: Upper GI August 01, 2023 HISTORY: Patient is an 79-year-old female with history of hiatal hernia, GERD. Dysphagia. Professor Of Practice radiographs: 1 view chest radiograph demonstrates stable cardiac silhouette. There is a rounded attenuation visualized at midline overlying the heart, consistent with known hiatal hernia. There is bibasilar atelectasis. Lungs are otherwise clear. There are diffuse bony degenerative changes. 1 view lateral soft tissue neck demonstrates no prevertebral soft tissue masses. Airway is widely patent. Effervescent crystals were administered orally. Thick and thin barium were administered orally under fluoroscopic control. Pharyngoesophagram: Rapid sequence imaging of the hypopharynx during swallowing demonstrates prompt initiation of swallowing. There is normal soft palate elevation and normal epiglottic motion. There is no laryngeal penetration or meena aspiration. There is no residual in the vallecula nor in the piriform sinuses. Thoracic esophagus: There is severe esophageal dysmotility. Normal distensibility and mucosal pattern without evidence of ulceration, stricture or mass formation. Hiatal hernia: There is a moderately sized, fixed hiatal hernia, grossly unchanged when compared to prior imaging from July 2023. Reflux: Unable to elicit 13mm Barium pill: Swallowed without difficulty. Prompt passage of pill from the esophagus into the supradiaphragmatic stomach. DAP: 6.82 Gycm^2 Procedure Note Verónica Mansfield MD - 12/27/2024 FINDINGS: Double contrast esophagram performed. COMPARISON: Upper GI August 01, 2023 HISTORY: Patient is an 79-year-old female with history of hiatal hernia,GERD. Dysphagia. Professor Of Practice radiographs: 1 view chest radiograph demonstrates stable cardiacsilhouette. There is a rounded attenuation visualized at midline overlyingthe heart, consistent with known hiatal hernia. There is bibasilaratelectasis. Lungs are otherwise clear. There are diffuse bonydegenerative changes. 1 view lateral soft tissue neck demonstrates noprevertebral soft tissue masses. Airway is widely patent. Effervescent crystals were administered orally. Thick and thin barium wereadministered orally under fluoroscopic control. Pharyngoesophagram: Rapid sequence imaging of the hypopharynx duringswallowing demonstrates prompt initiation of swallowing. There is normalsoft palate elevation and normal epiglottic motion. There is no laryngealpenetration or meena aspiration. There is no residual in the vallecula norin the piriform sinuses. Thoracic esophagus: There is severe esophageal dysmotility. Normaldistensibility and mucosal pattern without evidence of ulceration,stricture or mass formation. Hiatal hernia: There is a moderately sized, fixed hiatal hernia, grosslyunchanged when compared to prior imaging from July 2023. Reflux: Unable to elicit 13mm Barium pill: Swallowed without difficulty. Prompt passage of pillfrom the esophagus into the supradiaphragmatic stomach. DAP: 6.82 Gycm^2 IMPRESSION: 1. Severe esophageal dysmotility. 2. Moderately sized, fixed hiatal hernia, grossly unchanged when comparedto prior imaging from July 2023. -------- FINAL REPORT -------- Dictated By: Joann Ding Dictated Date: 12/27/2024 16:19 ET Assigned Physician: Verónica Mansfield Reviewed and Electronically Signed By: Verónica Mansfield Signed Date: 12/27/2024 17:02 ET Workstation ID: [id number] Transcribed By: Self Edit Transcribed Date: 12/27/2024 16:27 ET Resident/PA/GAMING WORKER: Joann Ding us Xochitl GUIDRY IMG FLUOROSCOPY PROCEDURES Fi nal Result * (ABNORMAL) Comprehensive metabolic panel (11/11/2024 5:53 AM EDT) Sodium 136 133 - 145 mmol/L LAB CHEMISTRY METHOD 11/11/2024 7:[address] [facility] Potassium 3.7 3.5 - 5.5 mmol/L LAB CHEMISTRY METHOD 11/11/2024 7:[address] [facility] Chloride 102 96 - 110 mmol/L LAB CHEMISTRY METHOD 11/11/2024 7:[address] [facility] CO2 28 21 - 32 mmol/L LAB CHEMISTRY METHOD 11/11/2024 7:[address] [facility] Anion Gap 6 3 - 11 LAB CHEMISTRY METHOD 11/11/2024 7:[address] [facility] Glucose 108(H) 70 - 100 mg/dL LAB CHEMISTRY METHOD 11/11/2024 7:[address] [facility] BUN 8 5 - 25 mg/dL LAB CHEMISTRY METHOD 11/11/2024 7:[address] [facility] Creatinine 0.68 0.50 - 1.10 mg/dL LAB CHEMISTRY METHOD 11/11/2024 7:[address] [facility] eGFR 88 >=60 mL/min/1. 73m2 LAB CHEMISTRY METHOD 11/11/2024 7:[address] [facility] Comment:Calculation based on the Chronic Kidney Disease Epidemiology Collaboration (CKD-EPI) equation refit without adjustment for race. BUN/Creatinine Ratio 11.8 LAB CHEMISTRY METHOD 11/11/2024 7:[address] [facility] Calcium 9.2 8.5 - 10.5 mg/dL LAB CHEMISTRY METHOD 11/11/2024 7:[address] [facility] AST (SGOT) 26 10 - 42 unit/L LAB CHEMISTRY METHOD 11/11/2024 7:[address] [facility] ALT (SGPT) 24 10 - 60 unit/L LAB CHEMISTRY METHOD 11/11/2024 7:22 AM EDT [facility] Alkaline Phosphatase 54 42 - 121 unit/L LAB CHEMISTRY METHOD 11/11/2024 7:22 AM EDT [facility] Total Protein 6.6 6.0 - 8.0 g/dL LAB CHEMISTRY METHOD 11/11/2024 7:22 AM EDT [facility] Albumin 3.3 3.2 - 5.0 g/dL LAB CHEMISTRY METHOD 11/11/2024 7:22 AM EDT [facility] Total Bilirubin 0.4 0.0 - 1.4 mg/dL LAB CHEMISTRY METHOD 11/11/2024 7:22 AM EDT [facility] Blood Venous blood specimen / Unknown Venipuncture / Unknown 11/11/2024 5:53 AM EDT 11/11/2024 6:19 AM EDT us Leona GUIDRY LAB BLOOD ORDERABLES Final R esult [facility] [address] [place] [address], from Last 3 Months or Most Recently Relevant to Health Maintenance Insurance MEDICAID - [place] [employer] MEDICARE Advance Directives Documents on File Type Date Recorded 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 Do not modify or discontinue any currently active code status orders. Care Teams Sweet Goods Machine Operator Relationship Specialty Start Date End Date Schuyler Pickard MD [address] [place] [id number] PCP - General Internal Medicine 11/15/24
[2025-02-15 14:34] LABS: Alanine Aminotransferase 18 U/L (0-31); Albumin Level 4.2 g/dL (3.5-5.0); Alkaline Phosphatase 65 U/L (39-117); Anion Gap 12 (12-20); Aspartate Amino Transferase 25 U/L (5-31); Blood Urea Nitrogen 7 mg/dL (9-16); Calcium 9.2 mg/dL (8.4-10.2); Carbon Dioxide 30 mmol/L (22-29); Chloride 106 mmol/L (96-108); Estimated Glomerular Filt Rate > 60; Potassium 3.7 mmol/L (3.3-5.1); Sodium 144 mmol/L (135-145); Total Protein 7.2 g/dL (6.5-8.0)
== END 2025-02-15 09:42 | disposition home or self-care (01) ==
LOC: HO.CHCLDS 09:41
PROVIDERS: Visit Provider Internal Medicine
DX: I10 Essential (primary) hypertension (principal)
CPT/HCPCS: 36415; 80053